=== PATIENT | female | born 1995 | race Caucasian/White ===

== ENCOUNTER 2020-06-08 00:40 | Outpatient (CLI) | payer MEDICAID, SELFPAY ==
--- NOTE | 2020-06-08 07:30 | DI.US_ITS ---
EXAM: US HERNIA CLINICAL HISTORY: 2cm firm mass at r lateral c/s incision,r19.03 TECHNIQUE: Ultrasound performed using standard protocol. COMPARISON: US OB US 2-3 TRIMESTER TRANSABD*P from 06/13/2017 FINDINGS: Soft tissue ultrasound was performed to evaluate and a palpable area abnormality at the patient's C-s ection scar. Ultrasound shows poorly marginated heterogeneously moderately echogenic area with a mas slike appearance, little if any internal vascularity is present, the masslike area measures about 2 c m in diameter. The appearance is nonspecific, the findings may represent focal scar but the possibility of mass such as sarcoma is not excluded on the basis of the ultrasound examination. Please correlate clinically. IMPRESSION: DATA REPOSITORY:
== END 2020-06-08 01:00 ==
PROVIDERS: PCP Nurse Practitioner Family; Visit Provider Obstetrics & Gynecology Gynecology
DX: R19.03 Right lower quadrant abdominal swelling, mass and lump (principal)
CPT/HCPCS: 76857

== ENCOUNTER 2020-09-10 02:05 | Outpatient (CLI) | payer BC, SELFPAY ==
[2020-09-10] MEDS: Breeza Beverage 473 ML BTL PO ×2 (08:31→08:32)
[2020-09-10] MEDS: Omnipaque 350 MG/ML 50 ML BTL PO (08:32)
--- NOTE | 2020-09-10 09:50 | DI.CT_ITS ---
EXAM: CT ABDOMEN PELVIS W CLINICAL HISTORY: PELVIC MASS, R19.00. TECHNIQUE: Imaging Protocol: Axial computed tomography images with coronal and sagittal reformatted images were created and reviewed CONTRAST MATERIAL: Intravenous: Omnipaque 100cc Oral: None COMPARISON: No exams were available for comparison FINDINGS: VISUALIZED LUNG BASES: No nodules nor pleural effusions evident. ABDOMEN: There is no ascites. LIVER: There are no obvious focal hepatic lesions evident . GALLBLADDER/BILIARY: Subtle small 3 millimeter density in the gallbladder fundus is probably a small calculus. In addition, there are foci density in the gallbladder which are also consistent with nonc alcified gallstones. Gallbladder wall is not edematous and there is no pericholecystic fluid. CBD i s not dilated. PANCREAS: No evidence of pancreatic mass nor dilatation of the pancreatic duct. SPLEEN: Spleen is not enlarged. No obvious intrasplenic lesions. Splenic and portal veins are paten t. ADRENALS: There are no significant adrenal masses. KIDNEYS:No cysts evident. No solid renal masses. No calculi nor hydronephrosis.. ABDOMINAL AORTA: Abdominal aorta is not enlarged and there is no apgknixaxlwfqdw-zpsn-flijzo adenopat hy. ABDOMINAL WALL/GI: No evidence of significant anterior abdominal wall hernia. No bowel obstruction. There is a 1.5 x 1.2 by 1.9 cm deep subcutaneous nodule contiguous with the anterior aspect of the ri ght rectus abdominus muscle in the pelvis, this exhibiting density similar to the subjacent musculatu re of the rectus abdominus. There is no associated subcutaneous air or gas nor prominent streaking. PELVIS: GI: No evidence of appendicitis.No evidence of sigmoid diverticulitis. LYMPH NODES: There is no intrapelvic nor inguinal adenopathy. REPRODUCTIVE: Age-appropriate URINARY BLADDER: No calculi nor obvious masses evident OSSEOUS: Bilateral sacroiliitis. No ankylosis of the SI joints IMPRESSION: 1. In the deep anterior right pelvis abdominal wall subcutaneous fat there is a 15 x 12 x 19 millimet er nodular density which is isodense to the adjacent right rectus abdominus muscle. This does not upton ve the appearance of a typical abscess. It is difficult to determine if this or the origin 8 Sitz fr om the deep subcutaneous tissue or from the actual muscle itself. There is no intervening plain evid ent between the rectus abdominus and this nodule. Cannot exclude ominous pathology and if clinically indicated biopsy can be performed. 2. Cholelithiasis. There are multiple gallstones. No evidence of acute cholecystitis nor dilatation of the biliary tree. 3. Bilateral sacroiliitis. There is, however, no ankylosis of the SI joints at this time. 4. There is no ascites. RADIATION DOSE DELIVERED: 1,132.24mGy.cm Total DLP DATA REPOSITORY: All CT scans at this facility are submitted to the National Radiology Data Registry (NRDR) Dose Index Registry (DIR) with the [employer] [place] (ACR). RADIATION OPTIMIZATION: All CT scans at this facility use at least one of these dose optimization te chniques: automated exposure control; mA and/or kV adjustment per patient size (includes targeted exa ms where dose is matched to clinical indication); or iterative reconstruction.
[2020-09-10] MEDS: Normal Saline - Diluent 50 ML VIAL IV (10:12)
[2020-09-10] MEDS: Omnipaque 350 MG/ML 100 ML BTL IJ (10:12)
[2020-09-10] MEDS: Normal Saline Flush 10 ML SYR IVP (10:13)
== END 2020-09-10 02:25 ==
PROVIDERS: PCP Nurse Practitioner Family; Visit Provider Nurse Practitioner Family
DX: R19.09 Other intra-abdominal and pelvic swelling, mass and lump (principal); K80.20 Calculus of gallbladder without cholecystitis without obstruction; M46.1 Sacroiliitis, not elsewhere classified
CPT/HCPCS: 74177; J3490; Q9967

== ENCOUNTER 2022-07-05 03:06 | Outpatient (CLI) | payer OTHER, SELFPAY ==
[2022-07-05 14:38] LABS: Panorama Kit Sent via Fed Ex
[2022-07-05 14:42] LABS: Abs Immature Grans 0.01 10^3/uL (0.0-0.06); Absolute Basophil Count 0.02 10^3/uL (0.0-0.2); Absolute Eosinophil Count 0.07 10^3/uL (0.0-0.7); Absolute Monocyte Count 0.44 10^3/uL (0.1-0.8); Absolute Neutrophil Count 4.62 10^3/uL (1.2-6.7); Basophils % 0.3; HCT 36.4 % (36.0-46.0); HGB 12.5 g/dL (11.2-15.7); Immature Grans % 0.1; Lymphocytes % 23.7; MCHC 34.3 % (32.0-36.0); MCV 93 fL (80-95); MPV 8.9 fL (8.0-11.0); Monocytes % 6.5; Neutrophils % 68.4; Platelet Count 252 10^3/uL (130-400); RBC 3.91 10^6/uL (3.93-5.22); RDW 11.4 % (11.7-14.6); RDW-SD 38.8 fL; WBC 6.76 10^3/uL (4.4-10.8)
[2022-07-05 15:14] LABS: TSH (W/Ref FT4) 1.08 uIU/mL (0.36-3.74)
[2022-07-05 20:36] LABS: Glucose,1 Hr (Glucola) 107 mg/dL (80-140)
[2022-07-06 09:48] LABS: HIV-1/2 Ag & Ab Screen Negative (Negative)
[2022-07-06 10:07] LABS: Hepatitis C Ab w Rflx HCV PCR Negative (Negative)
[2022-07-06 10:41] LABS: Varicella IgG Antibody Positive (See Note)
[2022-07-06 10:45] LABS: Rubella IgG Ab (UVM) Positive (See Note)
[2022-07-06 12:02] LABS: Hepatitis B Surface Ag Negative (Negative)
[2022-07-08 14:38] LABS: Syphilis IgG w/Reflex Nonreactive (Nonreactive)
== END 2022-07-05 03:07 | disposition home or self-care (01) ==
LOC: LBO 03:06
PROVIDERS: PCP Nurse Practitioner Family; Visit Provider Advanced Practice Midwife
DX: Z34.91 Encounter for supervision of normal pregnancy, unspecified, first trimester (principal); Z3A.12 12 weeks gestation of pregnancy
CPT/HCPCS: 36415; 82950; 86787; 86803; 86850; 86900; 86901; 87340; 87389; 84443; 85025; 86762; 86780

== ENCOUNTER 2022-07-05 15:54 | Outpatient (REF) | payer OTHER, SELFPAY ==
--- NOTE | 2022-07-05 14:00 | PAPFT_PTH ---
PATIENT: Eveline Martinez LOC: [facility] U#:[id number] AGE/SX: 26/F ROOM: RE07/05/[address]: Pretty Faustin CNM : 1995 BED: DIS: 07/05/2022 SPEC #: [id number] RECD: 07/05/22 17:43 STATUS: KERWIN REQ #: [id number] RAMILA: 07/05/22 14:[address]: Pretty Faustin DEPT: [facility] Cytology RECD BY: Kareen Rossi ENTERED: 07/05/22 17:44 SP TYPE: PAPFT OTHR DR: Aarti Orta Tissues: 1 - CX/ENDOCX FOR PAP SMEARS Procedures: PAP THIN PREP/UVM Screening Comments: [id number] (CHLAMYDIA/GC)
[2022-07-05 18:29] LABS: *AMPHETAMINES SCREEN URINE Negative (Negative); *BARBITURATES SCREEN URINE Negative (Negative); *BENZODIAZEPINES SCREEN URINE Negative (Negative); Cannabinoids THC Positive (Negative); Cocaine Screen,Urine Negative (Negative); METHADONE URINE SCREEN Negative (Negative); OPIATES URINE SCREEN Negative (Negative)
[2022-07-05 18:30] LABS: Tricyclic Antidepressants Negative (Negative)
[2022-07-07 14:40] LABS: GC Result Negative (Negative)
[2022-07-07 15:27] LABS: Chlamydia Result Positive (Negative)
[2022-07-14 11:09] LABS: Buprenorphine Negative ng/mL (Cutoff: 5.0); Norbuprenorphine Negative ng/mL (Cutoff: 2.5)
[2022-07-15 15:39] LABS: Fentanyl Interpretation Negative.; Fentanyl by LC-MS/MS Not Detected; Norfentanyl by LC-MS/MS Not Detected
== END 2022-07-05 15:55 | disposition home or self-care (01) ==
LOC: LBN 15:54
PROVIDERS: PCP Nurse Practitioner Family; Visit Provider Advanced Practice Midwife
DX: O26.891 Other specified pregnancy related conditions, first trimester (principal); N89.8 Other specified noninflammatory disorders of vagina; O99.321 Drug use complicating pregnancy, first trimester; F12.90 Cannabis use, unspecified, uncomplicated; Z12.4 Encounter for screening for malignant neoplasm of cervix; Z3A.12 12 weeks gestation of pregnancy; Z11.3 Encounter for screening for infections with a predominantly sexual mode of transmission
CPT/HCPCS: 80307; 80348; 87491; 87591; 88142; 80354; 87086; 87480; 87510; 87660

== ENCOUNTER 2022-08-04 02:17 | Outpatient (CLI) | payer OTHER, SELFPAY ==
[2022-08-04 13:30] LABS: Abs Immature Grans 0.02 10^3/uL (0.0-0.06); Absolute Basophil Count 0.01 10^3/uL (0.0-0.2); Absolute Eosinophil Count 0.01 10^3/uL (0.0-0.7); Absolute Lymphocyte Count 0.83 10^3/uL (1.2-3.4); Absolute Monocyte Count 0.55 10^3/uL (0.1-0.8); Absolute Neutrophil Count 6.06 10^3/uL (1.2-6.7); Basophils % 0.1; Eosinophils % 0.1; HCT 36.3 % (36.0-46.0); HGB 12.7 g/dL (11.2-15.7); Immature Grans % 0.3; Lymphocytes % 11.1; MCH 32.5 pg (27.0-33.0); MCV 93 fL (80-95); MPV 9.2 fL (8.0-11.0); Monocytes % 7.4; Platelet Count 217 10^3/uL (130-400); RBC 3.91 10^6/uL (3.93-5.22); RDW 11.9 % (11.7-14.6); RDW-SD 40.3 fL; WBC 7.48 10^3/uL (4.4-10.8)
[2022-08-04 14:22] LABS: ALT 37 U/L (14-59); AST 20 U/L (15-37); Albumin 3.5 g/dL (3.4-5.0); Alkaline Phosphatase 46 U/L (46-116); Anion Gap 7.3 mmol/L (3-11); BUN 7 mg/dL (7-18); Bilirubin, Total 0.2 mg/dL (0.2-1.0); CO2 26.7 mmol/L (21.0-32.0); CREATININE 0.6 mg/dL (0.55-1.02); Calcium 8.6 mg/dL (8.5-10.1); Chloride 102 mmol/L (98-107); Estimated GFR 127.67 (mL/min/1.73m2); Glucose 104 mg/dL (74-106); Potassium 3.3 mmol/L (3.5-5.1); Sodium 136 mmol/L (136-145); Total Protein 7.2 g/dL (6.4-8.2)
== END 2022-08-04 02:18 | disposition home or self-care (01) ==
LOC: LBO 02:17
PROVIDERS: PCP Nurse Practitioner Family; Visit Provider Obstetrics & Gynecology
DX: O16.2 Unspecified maternal hypertension, second trimester (principal)
CPT/HCPCS: 36415; 80053; 85025

== ENCOUNTER 2022-08-04 10:26 | Outpatient (REF) | payer OTHER, SELFPAY ==
[2022-08-04 11:15] LABS: Creatinine,Urine 96.86 mg/dL; PROTEIN 13.8 mg/dL (0.0-11.9)
[2022-08-04 11:40] LABS: Creatinine,24hr Ur 1.94 g/24hr (0.60-1.80); Total Volume 2000 ml
== END 2022-08-04 10:27 | disposition home or self-care (01) ==
LOC: LBN 10:26
PROVIDERS: PCP Nurse Practitioner Family; Visit Provider Obstetrics & Gynecology
DX: O16.2 Unspecified maternal hypertension, second trimester (principal)
CPT/HCPCS: 81050; 82570; 84155

== ENCOUNTER 2022-08-06 22:03 | Emergency (ER) | payer OTHER, SELFPAY ==
[2022-08-06 22:06] VITALS: BP 145/76; PULSE 112; RESP 20; TEMP 36.7; O2SAT 100
[2022-08-06 22:11] VITALS: RESP 17
--- NOTE | 2022-08-06 22:19 | ED.GENADUL_ITS ---
Discharge Plan Disposition Patient Disposition: Home Condition: Good Discharge Details Chief Complaint: GenMedical Clinical Impression: Dehydration, Acute hypokalemia, URI (upper respiratory infection) Primary Care Provider: Aarti Orta ED Provider: José Luis Calloway Home Meds and New Rx's Prescriptions: No Action acetylcysteine [NAC] 600 mg capsule 600 mg PO DAILY Saccharomyces boulardii [Digest Probiotic (S.boulardii)] 250 mg capsule 5,000 mmu cells PO DAILY Prenatabs Rx 29 mg iron- 1 mg tablet 1 tab PO DAILY Qty: 90 3RF fluconazole [Diflucan] 150 mg tablet 150 mg PO ONCE Qty: 1 0RF Rx Instructions: as a single dose fluticasone propionate 16 GM spray,suspension 50 mcg NS DAILY ibuprofen 600 MG tablet 600 mg PO Q6H PRN PRN (Reason: Abdominal Pain) Qty: 45 1RF Discharge Instructions Instructions: Dehydration (ED), Hypokalemia (ED) Additional Instructions: Please eat foods that are high in potassium like legumes, avocados and bananas. Please drink plenty of fluids at home to stay well-hydrated. Follow-up closely with your obstetrics seat cover cutter. If you notice any worsening of your symptoms, or any new symptoms such as vomiting, diarrhea, fever, chills, shortness of breath, chest pain, numbness, weakness, or fainting , please return immediately to the emergency department for reevaluation. Please follow up with your primary care provider as soon as possible for reassessment and reevaluation. As always, it was a pleasure participating in your medical care today. Referrals: Aarti Orta [Primary Care Provider] - Ladan Khoury DO [OSTEOPATHIC DOCTOR] - Medical Decision Making 26-year-old female with a past medical history of tonsillectomy, who is a currently 17 weeks presents today for evaluation of of mild pelvic cramping. Patient has had a normal obstetrics course of. 2 to 3 days ago she did notice a sore scratchy throat, and has had decreased p.o. intake because of this. No vomiting or diarrhea. Tonight she noticed some mild lower pelvic cramping. She denies any vaginal discharge or bleeding. No urinary complaints. No diarrhea. No other complaints at this time. No other modifying factors. Exam demonstrates a well-appearing female, appropriately gravid abdomen. Bedside ultrasound demonstrates a heart rate of 185. Suspect mild dehydration being the cause of her symptoms. We will rehydrate, check for strep, monitor closely and reassess. I did discuss with Dr. Laadn Khoury the scenario, and at this stage she does not see an indication for monitoring as long as the symptoms resolve after rehydration. 11:50 PM Patient's laboratory work-up is returned, urinalysis shows no evidence of infection, patient does not demonstrate evidence of mild dehydration which corresponds with her clinical assessment. Potassium slightly low at 3.1. After rehydration the patient's cramping has resolved, she feels much better and would like to go home. Recommend continued increased fluid use at home. Discussed red flags for which to return. Symptoms at this time are inconsistent with miscarriage, UTI, or significant electrolyte abnormality. We did recommend smoking cessation. I have extensively reviewed the treatment plan and discharge instructions with the patient and their family. I have addressed all patient concerns at this time. The patient and family was made aware of what symptoms to monitor for that would warrant a return to the emergency department. Discussed the plan with the patient and family, they demonstrate verbal understanding and agreement with our assessment and plan at this time. The documentation in this chart was dictated using [employer] dictation software. Please excuse any dictation errors. HPI General Date/Time Provider Initiated Documentation: 08/06/22 22:03 . HPI Narrative: 26-year-old female with a past medical history of tonsillectomy, who is a currently 17 weeks presents today for evaluation of of mild pelvic cramping. Patient has had a normal obstetrics course of. 2 to 3 days ago she did notice a sore scratchy throat, and has had decreased p.o. intake because of this. No vomiting or diarrhea. Tonight she noticed some mild lower pelvic cramping. She denies any vaginal discharge or bleeding. No urinary complaints. No diarrhea. No other complaints at this time. No other modifying factors. Related Data Home Medications Medication Instructions Recorded Confirmed fluticasone propionate 50 50 mcg NS DAILY 03/30/17 08/06/22 mcg/actuation nasal spray,suspension ibuprofen 600 mg tablet 600 mg PO Q6H PRN PRN Abdominal 11/03/17 08/06/22 Pain #45 tabs Saccharomyces boulardii 250 mg 5,000 mmu cells PO DAILY 05/19/22 08/06/22 capsule (Digest Probiotic (S.boulardii)) acetylcysteine 600 mg capsule (NAC) 600 mg PO DAILY 05/19/22 08/06/22 vitamin 1 tab PO DAILY #90 tabs 05/19/22 08/06/22 no.76-iron,carbonyl 29 mg iron-folic acid 1 mg tablet (Prenatabs Rx) fluconazole 150 mg tablet 150 mg PO ONCE #1 tab 08/02/22 08/06/22 (Diflucan) Previous Rx's Medication Instructions Recorded ibuprofen 600 mg tablet 600 mg PO Q6H PRN PRN Abdominal 11/03/17 Pain #45 tabs vitamin 1 tab PO DAILY #90 tabs 05/19/22 no.76-iron,carbonyl 29 mg iron-folic acid 1 mg tablet (Prenatabs Rx) fluconazole 150 mg tablet 150 mg PO ONCE #1 tab 08/02/22 (Diflucan) Allergies Allergy/AdvReac Type Severity Reaction Status Date / Time latex Allergy Severe rash and Verified 08/06/22 22:06 swelling General Stated Complaint: GenMedical GAIL: 3 Review of Systems All systems reviewed & are unremarkable except as noted in HPI and below PFSH All Active Problems (Updated 08/06/22 @ 23:50 by José Luis Calloway DO) Dehydration (Acute) Acute hypokalemia (Acute) URI (upper respiratory infection) (Acute) Elevated blood pressure affecting in second trimester, antepartum (Acute) Marijuana abuse (Acute) ADD (attention deficit disorder) (Acute) (Acute) Anxiety and depression (Chronic 08/01/17) Tobacco use (Acute 10/27/17) Currently using Wellbutrin to assist with cutting back. Smokes approximately 4-5 cigarettes per day. Abdominal or pelvic swelling, mass, or lump, right lower quadrant (Acute) 1026 2022 cm avascular fluid collection at the lateral margin of her Pfannenstiel skin incision. Expectant management planned. Medical History Acute non intractable tension-type headache (12/14/17) PP. Pt encouraged to avoid NSAIDs to avoid reflex H/A. Adult BMI 38.0-38.9 kg/sq m (10/09/17) Anxiety and depression Rx with Wellbutrin. BMI 37.0-37.9, adult (12/14/17) BMI 38.0-38.9,adult Delayed menses Obesity affecting , antepartum (08/01/17) Surgical History delivery delivered 11/03/17. Scheduled. Breech presentation. F. wt:3455gm Tonsillectomy and adenoidectomy age 5 yrs Social History Smoking/Tobacco Use Status: Current every day Tobacco Type: cigarettes Smoking risk assessment performed?: Yes Alcohol Intake: former Drug use: Daily Substance use type: does not use and marijuana Counseling given: Yes Counseling provided: provider counseling Adopted: No Foster care: No Household members: significant other and children Number of Children: 1 Communication Needs: None Do you feel safe in your relationship?: Yes Female Reproductive History Menstrual control method: other History History 2 Para 1 Hx # Term Pregnancies 1 Multiple births 0 Hx # Pregnancies 0 Ectopic pregnancies 0 AB induced 0 Hx Number of Living Children 1 AB spontaneous 0 Past Pregnancies Del. Date GA/Weeks # Preg Succ Route Wgt Sex Labor Lgth Anesth esia Location [facility] 11/03/17 39 No Yes 3458.[address] [facility] - Dr. Mccarthy Delivery Date: 11/03/17 Last Updated by: Pretty Faustin declined ECV, sched'ed C/S for breech [place] Exam Narrative Exam Narrative: 1.Const: Well-nourished, Well-developed, appearing stated age 2.Eyes: PERRL, no conjunctival injection, and symmetrical lids. 3.ENT: Atraumatic external nose and ears. Dry MM. Neck: Symmetric, trachea midline, No thyromegaly. Mild erythema in the posterior oropharynx. Small amount of exudate on the left posterior oropharynx. 4.CVS: +S1/S2, No murmurs or gallops. Peripheral pulses 2+ and equal in all extremities. Brisk capillary refill in all extremities. 5.RESP: Unlabored respiratory effort. Clear to auscultation bilaterally. No wheezes rales or rhonchi 6.GI: Soft, Nontender/Nondistended, No hepatosplenomegaly. No guarding or rebound. Appropriately gravid abdomen, no pain at McBurney's point, negative Lao sign. No pelvic tenderness on palpation. 7.MSK: Normocephalic/Atraumatic, Extremities w/o deformity or ttp No cyanosis or clubbing, Normal movement of all extremities 8.Skin: Warm, Dry. No rashes or lesions. 9.Neuro: talent program manager II-XII grossly intact. Sensation grossly intact, no focal neurologic deficits. 10.Psych: (AAO) x3. Appropriate mood and affect Course Vital Signs Vital signs: Vital Signs Temperature 36.7 C 08/06/22 22:06 Pulse 112 H 08/06/22 22:06 Respiratory Rate 20 08/06/22 22:06 Blood Pressure 145/76 H 08/06/22 22:06 Pulse Oximetry 100 08/06/22 22:06 Temperature 36.7 C 08/06/22 22:06 Temperature Source Temporal Artery Scan 08/06/22 22:06 Pulse 112 H 08/06/22 22:06 Respiratory Rate 17 08/06/22 22:11 Respiratory Effort Non-Labored 08/06/22 22:11 Respiratory Depth Normal 08/06/22 22:11 Respiratory Pattern Normal 08/06/22 22:11 Blood Pressure 145/76 H 08/06/22 22:06 Blood Pressure Position Sitting 08/06/22 22:06 Pulse Oximetry 100 08/06/22 22:06 Oxygen Delivery Method Room Air 08/06/22 22:06 Oxygen Flow Rate 0 08/06/22 22:06 Pain Level 7 08/06/22 22:06
[2022-08-06] MEDS: Normal Saline 1,000 ML 1000 ML IV (22:22)
[2022-08-06 22:24] LABS: Abs Immature Grans 0.01 10^3/uL (0.0-0.06); Absolute Basophil Count 0.01 10^3/uL (0.0-0.2); Absolute Lymphocyte Count 0.91 10^3/uL (1.2-3.4); Absolute Monocyte Count 0.46 10^3/uL (0.1-0.8); Absolute Neutrophil Count 5.41 10^3/uL (1.2-6.7); Basophils % 0.1; HCT 37.4 % (36.0-46.0); Immature Grans % 0.1; Lymphocytes % 13.4; MCH 32.2 pg (27.0-33.0); MCHC 34.8 % (32.0-36.0); MCV 93 fL (80-95); Monocytes % 6.8; Neutrophils % 79.6; Platelet Count 186 10^3/uL (130-400); RBC 4.04 10^6/uL (3.93-5.22); RDW 11.5 % (11.7-14.6); RDW-SD 39.1 fL
[2022-08-06 22:39] LABS: ALT 32 U/L (14-59); AST 22 U/L (15-37); Albumin 3.6 g/dL (3.4-5.0); Alkaline Phosphatase 58 U/L (46-116); Anion Gap 10.3 mmol/L (3-11); BUN 7 mg/dL (7-18); Bilirubin, Total 0.4 mg/dL (0.2-1.0); CO2 24.7 mmol/L (21.0-32.0); CREATININE 0.6 mg/dL (0.55-1.02); Calcium 8.7 mg/dL (8.5-10.1); Chloride 98 mmol/L (98-107); Estimated GFR 127.67 (mL/min/1.73m2); Glucose 109 mg/dL (74-106); Lipase 31 U/L (73-393); Potassium 3.1 mmol/L (3.5-5.1); Sodium 133 mmol/L (136-145); Total Protein 7.8 g/dL (6.4-8.2)
[2022-08-06] MEDS: Potassium Chloride 20 MEQ TABCR 40 MEQ PO (22:48)
[2022-08-06 23:35] LABS: Bilirubin Small (Negative); Blood Trace-intact (Negative); Clarity Sl Cloudy (Clear); Glucose Negative (Negative); Ketones 40 mg/dL (Negative); Leukocyte Esterase Negative (Negative); Nitrite Negative (Negative); Specific Gravity >= 1.030 (1.005-1.025)
[2022-08-06 23:37] LABS: Bacteria Few HPF (Negative); C & S Indicated? No; Casts Negative LPF (Negative); Crystals Negative HPF (Negative); Epithelial Cells Moderate HPF (Negative); Mucus Trace (Negative); WBC Negative HPF (0-5)
[2022-08-06 23:51] VITALS: BP 124/59; PULSE 85; RESP 20; TEMP 37; O2SAT 99
== END 2022-08-07 00:12 | disposition home or self-care (01) ==
PROVIDERS: Emergency Provider Student in an Organized Health Care Education/Training Program; PCP Nurse Practitioner Family
DX: O99.512 Diseases of the respiratory system complicating pregnancy, second trimester (principal); J06.9 Acute upper respiratory infection, unspecified; O99.282 Endocrine, nutritional and metabolic diseases complicating pregnancy, second trimester; E86.0 Dehydration; E87.6 Hypokalemia; Z3A.17 17 weeks gestation of pregnancy
CPT/HCPCS: 36415; 80053; 83690; 87880; 96360; 99284; 81003; 81015; 85025; 87081

== ENCOUNTER 2022-08-08 12:20 | Emergency (ER) | payer OTHER, SELFPAY ==
[2022-08-08 12:39] VITALS: BP 132/82; PULSE 108; RESP 16; TEMP 36.9; O2SAT 99
[2022-08-08] MEDS: Acetaminophen 325 MG TAB 650 MG PO (13:46)
--- NOTE | 2022-08-08 14:10 | ED.GENADUL_ITS ---
Discharge Plan Disposition Patient Disposition: Home Condition: Stable Discharge Details Clinical Impression: Pharyngitis Primary Care Provider: Aarti Orta ED Provider: Dawood Ruggiero Home Meds and New Rx's Prescriptions: Continued Saccharomyces boulardii [Digest Probiotic (S.boulardii)] 250 mg capsule 5,000 mmu cells PO DAILY Prenatabs Rx 29 mg iron- 1 mg tablet 1 tab PO DAILY Qty: 90 3RF Discontinued acetylcysteine [NAC] 600 mg capsule 600 mg PO DAILY fluticasone propionate 16 GM spray,suspension 50 mcg NS DAILY No Action nystatin 100,000 unit/mL suspension 100,000 unit buccal DAILY Qty: 200 0RF Rx Instructions: administer 1/2 of dose in each side of the mouth valacyclovir [Valtrex] 1 gram tablet 1,000 mg PO DAILY Qty: 5 3RF Discharge Instructions Additional Instructions: Please take acetaminophen (tylenol) - 650mg every 6 hours by mouth as needed for pain. Use salt water gargles at least 3 times a day for the next week. Rapid strep testing was negative today. Throat culture is pending at time of discharge. If this culture comes back positive, you will be contacted to initiate antibiotics. COVID testing is pending at time of discharge today. Please maintain home isolation until COVID test is resulted and normal. Please contact your primary care physician to arrange follow-up. Return to the ER immediately for any worsening or new concerning symptoms. Referrals: [facility] [place] [Provider Group] Discharge Data Discharge Date/Time-TO BE ENTERED AT DEPARTURE: 08/08/22 14:26 Medical Decision Making 1943 --46-year-old female at 17 weeks here with pharyngitis. Patient hav ing pain with swallowing solids. She is tolerating oral fluids. No signs of peritonsillar abscess. Rapid strep test was performed and negative. I will send throat culture. Therapeutic options were discussed with the patient and plan will be to continue Tylenol and salt water gargles. HPI General Mode of arrival: ambulatory . Date/Time Provider Initiated Documentation: 08/08/22 13:08 . Limitations to Documentation: no limitations . Information obtained by: patient . HPI Narrative: 26-year-old female at 17 weeks presents with chief complaint of sore throat. Sore throat is been present for the past few days. Patient was seen here on 1224 for sore throat and had negative strep test. Pain is persisted. She notes difficulty swallowing solids. She is able to tolerate p.o. fluids. Patient did have fever last night. Related Data Home Medications Medication Instructions Recorded Confirmed Saccharomyces boulardii 250 mg 5,000 mmu cells PO DAILY 05/19/22 08/08/22 capsule (Digest Probiotic (S.boulardii)) vitamin 1 tab PO DAILY #90 tabs 05/19/22 08/08/22 no.76-iron,carbonyl 29 mg iron-folic acid 1 mg tablet (Prenatabs Rx) nystatin 100,000 unit/mL oral 100,000 unit buccal DAILY #200 mL 08/09/22 08/09/22 suspension valacyclovir 1 gram tablet 1,000 mg PO DAILY #5 tabs 08/09/22 08/09/22 (Valtrex) Previous Rx's Medication Instructions Recorded vitamin 1 tab PO DAILY #90 tabs 05/19/22 no.76-iron,carbonyl 29 mg iron-folic acid 1 mg tablet (Prenatabs Rx) nystatin 100,000 unit/mL oral 100,000 unit buccal DAILY #200 mL 08/09/22 suspension valacyclovir 1 gram tablet 1,000 mg PO DAILY #5 tabs 08/09/22 (Valtrex) Allergies Allergy/AdvReac Type Severity Reaction Status Date / Time latex Allergy Severe rash and Verified 08/09/22 15:26 swelling General Stated Complaint: Sorethroat GAIL: 4 Review of Systems All systems reviewed & are unremarkable except as noted in HPI and below Constitutional Constitutional: Reports fever(s) ENT Ears, Nose, Mouth, and Throat: Reports odynophagia and Reports sore throat Gastrointestinal Gastrointestinal: Reports odynophagia Genitourinary Comments: She denies pelvic pain or abnormal vaginal discharge PFSH All Active Problems Vulvar lesion (Acute) Dehydration (Acute) Acute hypokalemia (Acute) URI (upper respiratory infection) (Acute) Pharyngitis (Acute) Elevated blood pressure affecting in second trimester, antepartum (Acute) Marijuana abuse (Acute) ADD (attention deficit disorder) (Acute) (Acute) Anxiety and depression (Chronic 08/01/17) Tobacco use (Acute 10/27/17) Currently using Wellbutrin to assist with cutting back. Smokes approximately 4-5 cigarettes per day. Abdominal or pelvic swelling, mass, or lump, right lower quadrant (Acute) 1026 2022 cm avascular fluid collection at the lateral margin of her Pfannenstiel skin incision. Expectant management planned. Medical History Acute non intractable tension-type headache (12/14/17) PP. Pt encouraged to avoid NSAIDs to avoid reflex H/A. Adult BMI 38.0-38.9 kg/sq m (10/09/17) Anxiety and depression Rx with Wellbutrin. BMI 37.0-37.9, adult (12/14/17) BMI 38.0-38.9,adult Delayed menses Obesity affecting , antepartum (08/01/17) Surgical History delivery delivered 11/03/17. Scheduled. Breech presentation. F. wt:3455gm Tonsillectomy and adenoidectomy age 5 yrs Social History Smoking/Tobacco Use Status: Current every day Tobacco Type: cigarettes Smoking risk assessment performed?: Yes Alcohol Intake: former Substance use type: does not use Counseling given: Yes Counseling provided: provider counseling Adopted: No Foster care: No Household members: significant other and children Number of Children: 1 Communication Needs: None Do you feel safe at home: Yes Do you feel safe in your relationship?: Yes Female Reproductive History Menstrual control method: other History History 2 Para 1 Hx # Term Pregnancies 1 Multiple births 0 Hx # Pregnancies 0 Ectopic pregnancies 0 AB induced 0 Hx Number of Living Children 1 AB spontaneous 0 Past Pregnancies Del. Date GA/Weeks # Preg Succ Route Wgt Sex Labor Lgth Anesth esia Location Prov Complic 11/03/17 39 No Yes 3458.642 g Female N [facility] - Dr. Mccarthy Delivery Date: 11/03/17 Last Updated by: Pretty Faustin declined ECV, sched'ed C/S for breech [place] Exam Const General: cooperative and no acute distress HENMT Mouth: moist mucous membranes Throat: uvula midline and posterior oropharynx abnormal edema, erythema and exudates Eyes Conjunctivae: normal conjunctivae Sclera: normal sclerae Neck Neck: trachea midline and supple Resp Auscultation: clear to auscultation bilaterally, no rales, no rhonchi and no wheezes Cardio Rate: regular rate and not tachycardic Rhythm: regular rhythm Skin General skin exam: no rashes or lesions noted Course Vital Signs Vital signs: Vital Signs Temperature 36.9 C 08/08/22 12:39 Pulse 108 H 08/08/22 12:39 Respiratory Rate 16 08/08/22 12:39 Blood Pressure 132/82 08/08/22 12:39 Pulse Oximetry 99 08/08/22 12:39 Temperature 36.9 C 08/08/22 12:39 Temperature Source Skin 08/08/22 12:39 Pulse 108 H 08/08/22 12:39 Respiratory Rate 16 08/08/22 12:39 Respiratory Effort 08/08/22 12:43 Blood Pressure 132/82 08/08/22 12:39 Blood Pressure Position Sitting 08/08/22 12:39 Pulse Oximetry 99 08/08/22 12:39 Oxygen Delivery Method Room Air 08/08/22 12:39 Oxygen Flow Rate 0 08/08/22 12:39 Pain Level 6 08/08/22 12:39 Lab/Test Results Lab/Test Results: 08/08/22 13:24 Pharynx Group A Streptococcus Culture - Pending POC Strep Test-NEHEMIAS(Rapid) Start: 08/08/22 13:22 Freq: .Rapid Strep Test Status: Active Protocol: Document 08/08/22 13:31 CAB (Rec: 08/08/22 13:31 CAB [id number]) Strep test-NEHEMIAS(Rapid)-POC POC-Strep test-NEHEMIAS (Rapid) Negative POC-Strep test-NEHEMIAS (Rapid) Negative
== END 2022-08-08 14:26 | disposition home or self-care (01) ==
PROVIDERS: Emergency Provider Student in an Organized Health Care Education/Training Program; PCP Nurse Practitioner Family
DX: J02.9 Acute pharyngitis, unspecified (principal); Z20.822 Contact with and (suspected) exposure to COVID-19
CPT/HCPCS: 87880; 99282; 87081

== ENCOUNTER 2022-08-09 17:39 | Outpatient (CLI) | payer OTHER, SELFPAY ==
[2022-08-12 10:49] LABS: HSV Type 1 Ab, IgG Negative (Negative); HSV Type 2 Ab, IgG Negative (Negative)
== END 2022-08-09 17:40 | disposition home or self-care (01) ==
LOC: LBO 17:49
PROVIDERS: PCP Nurse Practitioner Family; Visit Provider Obstetrics & Gynecology
DX: N90.89 Other specified noninflammatory disorders of vulva and perineum (principal)
CPT/HCPCS: 36415; 86695; 86696

== ENCOUNTER 2022-09-28 15:11 | Outpatient (REF) | payer OTHER, SELFPAY ==
[2022-09-29 14:57] LABS: Chlamydia Result Negative (Negative); GC Result Negative (Negative)
== END 2022-09-28 15:12 | disposition home or self-care (01) ==
LOC: LBN 15:11
PROVIDERS: PCP Nurse Practitioner Family; Visit Provider Obstetrics & Gynecology
DX: Z34.92 Encounter for supervision of normal pregnancy, unspecified, second trimester (principal); Z11.3 Encounter for screening for infections with a predominantly sexual mode of transmission; Z3A.24 24 weeks gestation of pregnancy
CPT/HCPCS: 87491; 87591

== ENCOUNTER 2022-10-20 03:07 | Outpatient (CLI) | payer OTHER, SELFPAY ==
[2022-10-20 15:21] LABS: Abs Immature Grans 0.01 10^3/uL (0.0-0.06); HCT 32.6 % (36.0-46.0); HGB 11.7 g/dL (11.2-15.7); MCH 33.1 pg (27.0-33.0); MCHC 35.9 % (32.0-36.0); MCV 92 fL (80-95); Platelet Count 174 10^3/uL (130-400); RBC 3.53 10^6/uL (3.93-5.22); RDW 12.8 % (11.7-14.6); RDW-SD 41.7 fL; WBC 6.76 10^3/uL (4.4-10.8)
[2022-10-20 15:31] LABS: Glucose,1 Hr (Glucola) 121 mg/dL (80-140)
[2022-10-20 15:37] LABS: Absolute Lymphocyte Count 1.89 10^3/uL (1.2-3.4); Absolute Monocyte Count 0.68 10^3/uL (0.1-0.8); Absolute Neutrophil Count 4.19 10^3/uL (1.2-6.7); Atypical Lymphocytes % 5; Diff Comment Manual Differential; RBC Morphology Normal
== END 2022-10-20 03:08 | disposition home or self-care (01) ==
LOC: LBO 03:07
PROVIDERS: Obstetrics & Gynecology; PCP Nurse Practitioner Family; Visit Provider Obstetrics & Gynecology Gynecology
DX: Z34.92 Encounter for supervision of normal pregnancy, unspecified, second trimester (principal); Z3A.27 27 weeks gestation of pregnancy
CPT/HCPCS: 36415; 82950; 85025

== ENCOUNTER 2022-11-07 15:51 | Outpatient (REF) | payer OTHER, SELFPAY ==
[2022-11-07 20:02] LABS: *AMPHETAMINES SCREEN URINE Negative (Negative); *BARBITURATES SCREEN URINE Negative (Negative); *BENZODIAZEPINES SCREEN URINE Negative (Negative); Cannabinoids THC Positive (Negative); Cocaine Screen,Urine Negative (Negative); METHADONE URINE SCREEN Negative (Negative); OPIATES URINE SCREEN Negative (Negative)
[2022-11-07 20:07] LABS: Tricyclic Antidepressants Negative (Negative)
[2022-11-15 19:19] LABS: Buprenorphine Negative ng/mL (Cutoff: 5.0); Norbuprenorphine Negative ng/mL (Cutoff: 2.5)
== END 2022-11-07 15:52 | disposition home or self-care (01) ==
LOC: LBN 15:51
PROVIDERS: PCP Nurse Practitioner Family; Visit Provider Obstetrics & Gynecology
DX: Z34.93 Encounter for supervision of normal pregnancy, unspecified, third trimester (principal); Z3A.30 30 weeks gestation of pregnancy
CPT/HCPCS: 80307; 80348

== ENCOUNTER 2022-12-06 16:21 | Outpatient (REF) | payer OTHER, SELFPAY ==
[2022-12-06 17:34] LABS: PROTEIN 120.4 mg/dL
[2022-12-06 17:49] LABS: COMMENT (LAB VIEW ONLY) 551.81 mg/dL; Prot/Crea Ur Ratio 0.21
== END 2022-12-06 16:22 | disposition home or self-care (01) ==
LOC: LBN 16:21
PROVIDERS: PCP Nurse Practitioner Family; Visit Provider Obstetrics & Gynecology
DX: Z34.93 Encounter for supervision of normal pregnancy, unspecified, third trimester (principal); Z3A.34 34 weeks gestation of pregnancy
CPT/HCPCS: 82565; 84156

== ENCOUNTER 2022-12-06 16:33 | Outpatient (CLI) | payer OTHER, SELFPAY ==
[2022-12-06 16:47] VITALS: BP 128/72; PULSE 110
[2022-12-06 17:08] VITALS: BP 128/72; PULSE 110; TEMP 36.9
[2022-12-06 17:10] LABS: HCT 32.8 % (36.0-46.0); HGB 11.4 g/dL (11.2-15.7); MCH 31.8 pg (27.0-33.0); MCHC 34.8 % (32.0-36.0); MCV 92 fL (80-95); Platelet Count 194 10^3/uL (130-400); RBC 3.58 10^6/uL (3.93-5.22); RDW 12.6 % (11.7-14.6); RDW-SD 42.3 fL; WBC 6.59 10^3/uL (4.4-10.8)
[2022-12-06 17:41] VITALS: PULSE 88; PULSE 90; O2SAT 100
[2022-12-06 17:42] VITALS: PULSE 86
[2022-12-06 18:28] LABS: ALT 45 U/L (14-59); AST 26 U/L (15-37); Albumin 2.9 g/dL (3.4-5.0); Alkaline Phosphatase 84 U/L (46-116); Anion Gap 7.1 mmol/L (3-11); BUN 9 mg/dL (7-18); Bilirubin, Total 0.5 mg/dL (0.2-1.0); CO2 25.9 mmol/L (21.0-32.0); CREATININE 0.7 mg/dL (0.55-1.02); Calcium 8.5 mg/dL (8.5-10.1); Chloride 103 mmol/L (98-107); Estimated GFR 122.25 (mL/min/1.73m2); Glucose 115 mg/dL (74-106); Sodium 136 mmol/L (136-145); Total Protein 6.5 g/dL (6.4-8.2); Uric Acid 4.5 mg/dL (2.6-6.0)
[2022-12-06 18:30] LABS: Potassium 2.7 mmol/L (3.5-5.1)
--- NOTE | 2022-12-06 19:25 | W.OBNST ---
Date of service: 12/06/22 Time of Service: 19:25 NST Evaluation Reason for NST Reasons for Nonstress Test: OTHER, SEE COMMENT Reason for NST Other: maternal tachycardia Gestational Age Gestational Age in Weeks and Days: 34 Weeks and 4Days Test and Monitor Explained Test/Monitor Explained: Test Explained, Monitor Explained and Patient Verbalized Understanding Vital Signs Blood Pressure: 128/72 Pulse: 110 Temperature: 98.4 F NST Information Date on Monitor: 12/06/22 Time on Monitor: 16:26 Date off Monitor: 12/06/22 Time off Monitor: 17:40 Total Time on Monitor: 74 NST Interventions: PO Hydration Contraction Frequency: irritalbility NST Evaluation Patient States Movement: Present FHR Baseline: 140 Variability: Moderate 6-25 bpm Accelerations: 15x15 Decelerations: None NST Results: Reactive Note Ultrasound Done: N/A. NST Note Note: 12/04/22. Seen at [facility] ED with RUQ pain. Nl CMP, CBC. Nl VS. Pt given Famotidine, Morphine, Carafate and Ondansetron with sx relief. She has a RUQ u/s ordered for 12/12/22 @ [facility] Pt presented to [facility] for previously scheduled visit. P 120 DBP 80s. Pt observed, given PO hydration and pulse and BP normalized. uP/C ratio 0.2, CBC unchanged from 12/04/22. K: 2.7. was reported after pt left. No report of N/V. I called her to advise to increase dietary K and f/u in [facility] 12/09/22. NST Reviewed and Verified by: Jacquelyn Mccarthy
[2022-12-06 19:28] VITALS: BP 128/72; PULSE 110; TEMP 36.9
== END 2022-12-06 18:33 | disposition home or self-care (01) ==
LOC: BCD 16:39 → OBS 16:41
PROVIDERS: PCP Nurse Practitioner Family; Visit Provider Obstetrics & Gynecology Gynecology
DX: O36.8390 Maternal care for abnormalities of the fetal heart rate or rhythm, unspecified trimester, not applicable or unspecified (principal); Z3A.34 34 weeks gestation of pregnancy
CPT/HCPCS: 36415; 80053; 85027; 59025; 84550

== ENCOUNTER 2022-12-15 15:56 | Outpatient (REF) | payer OTHER, SELFPAY ==
[2022-12-15 19:14] LABS: *AMPHETAMINES SCREEN URINE Negative (Negative); *BARBITURATES SCREEN URINE Negative (Negative); *BENZODIAZEPINES SCREEN URINE Negative (Negative); Cannabinoids THC Positive (Negative); Cocaine Screen,Urine Negative (Negative); METHADONE URINE SCREEN Negative (Negative); OPIATES URINE SCREEN Negative (Negative)
[2022-12-15 19:29] LABS: Tricyclic Antidepressants Negative (Negative)
[2022-12-22 16:07] LABS: Buprenorphine Negative ng/mL (Cutoff: 5.0); Norbuprenorphine Negative ng/mL (Cutoff: 2.5)
== END 2022-12-15 15:57 | disposition home or self-care (01) ==
LOC: LBN 15:56
PROVIDERS: PCP Nurse Practitioner Family; Visit Provider Obstetrics & Gynecology
DX: Z34.93 Encounter for supervision of normal pregnancy, unspecified, third trimester (principal)
CPT/HCPCS: 80307; 80348; 87081

== ENCOUNTER 2023-01-10 04:00 | Outpatient (CLI) | payer OTHER, SELFPAY ==
[2023-01-10 11:39] LABS: ALT 21 U/L (14-59); AST 17 U/L (15-37); Albumin 2.7 g/dL (3.4-5.0); Alkaline Phosphatase 124 U/L (46-116); Anion Gap 9.3 mmol/L (3-11); BUN 17 mg/dL (7-18); Bilirubin, Total 0.3 mg/dL (0.2-1.0); CO2 23.7 mmol/L (21.0-32.0); CREATININE 0.9 mg/dL (0.55-1.02); Calcium 8.2 mg/dL (8.5-10.1); Chloride 108 mmol/L (98-107); Estimated GFR 90.42 (mL/min/1.73m2); Glucose 85 mg/dL (74-106); Potassium 3.6 mmol/L (3.5-5.1); Sodium 141 mmol/L (136-145); Total Protein 6.8 g/dL (6.4-8.2)
== END 2023-01-10 04:01 | disposition home or self-care (01) ==
LOC: LBO 04:00
PROVIDERS: Obstetrics & Gynecology Gynecology; PCP Nurse Practitioner Family; Visit Provider Obstetrics & Gynecology
DX: O34.219 Maternal care for unspecified type scar from previous cesarean delivery (principal); Z3A.39 39 weeks gestation of pregnancy; Z01.818 Encounter for other preprocedural examination; Z01.812 Encounter for preprocedural laboratory examination
CPT/HCPCS: 36415; 80053

== ENCOUNTER 2023-01-10 11:40 | Outpatient (REF) | payer OTHER, SELFPAY ==
[2023-01-10 11:58] LABS: Source Nasal/Nares
[2023-01-10 13:07] LABS: COVID-19 PCR Negative (Negative)
== END 2023-01-10 11:41 | disposition home or self-care (01) ==
LOC: LBN 11:40
PROVIDERS: PCP Nurse Practitioner Family; Visit Provider Obstetrics & Gynecology
DX: Z20.822 Contact with and (suspected) exposure to COVID-19 (principal); Z01.818 Encounter for other preprocedural examination; O34.219 Maternal care for unspecified type scar from previous cesarean delivery; Z3A.39 39 weeks gestation of pregnancy
CPT/HCPCS: 87635

== ENCOUNTER 2023-01-11 03:27 | Inpatient (IN) | payer OTHER, SELFPAY ==
[2023-01-11] VITALS (15 sets, daily range): BP systolic 108–130; BP diastolic 67–85; PULSE 62–99; RESP 18–20; TEMP 36.4–37.1; O2SAT 100; BMI 34.4
[2023-01-11] MEDS: AZITHROMYCIN 500 MG in Normal Saline 250 ML 250 MG IVPB (06:25)
[2023-01-11] MEDS: Sodium Citrate 30 ML CUP PO (06:26)
[2023-01-11] MEDS: Lactated Ringers 1,000 ML 200 ML IV ×2 (06:30→08:09)
[2023-01-11 06:46] LABS: Abs Immature Grans 0.02 10^3/uL (0.0-0.06); Absolute Basophil Count 0.02 10^3/uL (0.0-0.2); Absolute Eosinophil Count 0.04 10^3/uL (0.0-0.7); Absolute Lymphocyte Count 2.63 10^3/uL (1.2-3.4); Absolute Monocyte Count 0.52 10^3/uL (0.1-0.8); Absolute Neutrophil Count 4.02 10^3/uL (1.2-6.7); Basophils % 0.3; Eosinophils % 0.6; HCT 33.7 % (36.0-46.0); HGB 11.4 g/dL (11.2-15.7); Immature Grans % 0.3; Lymphocytes % 36.3; MCH 31.2 pg (27.0-33.0); MCHC 33.8 % (32.0-36.0); MCV 92 fL (80-95); MPV 9.8 fL (8.0-11.0); Monocytes % 7.2; Neutrophils % 55.3; Platelet Count 242 10^3/uL (130-400); RBC 3.65 10^6/uL (3.93-5.22); RDW-SD 41.1 fL; WBC 7.25 10^3/uL (4.4-10.8)
--- NOTE | 2023-01-11 07:27 | ANES.PREOP_ITS ---
General Info Date of Service Date Performed: 01/11/23 Height: 5 ft 10 in Weight: 109.032 kg Body Mass Index (BMI): 34.4 Surgical Procedure: Operation Date: 01/11/23 07:40 Proposed Procedure Side Surgeon p Repeat Lower Transverse Section Jolie Allen MD Meds Allergies and Home Medications Allergies Allergy/AdvReac Type Severity Reaction Status Date / Time latex Allergy Severe rash and Verified 01/10/23 10:18 swelling Home Medication Medication Instructions Recorded Saccharomyces boulardii 250 mg 5,000 mmu cells PO DAILY 05/19/22 capsule (Digest Probiotic (S.boulardii)) vitamin 1 tab PO DAILY #90 tabs 05/19/22 no.76-iron,carbonyl 29 mg iron-folic acid 1 mg tablet (Prenatabs Rx) esomeprazole magnesium 40 mg 40 mg PO DAILY #30 caps 12/09/22 capsule,delayed release (Nexium) potassium chloride 10 mEq 10 meq PO BID #30 caps 12/09/22 capsule,extended release fluticasone propionate 50 1 spray intranasal Q12H #16 grams 12/13/22 mcg/actuation nasal spray,suspension (Flonase Allergy Relief) Current Visit Medications: Current Medications Generic Name Dose Route Start Last Admin Trade Name Freq PRN Reason Stop Dose Admin Citric Acid/Sodium Citrate 30 ml 01/11/23 04:00 01/11/23 06:26 Sodium Citrate 30 Ml Cup PO 30 ml PREOP DAVIS Administration Ringer's Solution 1,000 mls @ 200 mls/hr 01/11/23 03:30 IV INFUSION DAVIS Sodium Chloride 500 mls @ 0 mls/hr 01/11/23 03:26 Saline 500ml Bag IV PRN PRN As Directed Cefazolin Sodium/Dextrose 2 gm in 50 mls @ 100 mls/hr 01/11/23 03:30 Ancef Duplex IVPB PREOP DAVIS Azithromycin 500 mg/ Sodium 250 mls @ 250 mls/hr 01/11/23 03:30 01/11/23 06:25 Chloride IVPB 250 mls/hr PREOP DAVIS Administration IV Miscellaneous Supplies 1 each 01/11/23 03:30 Iv Access IV DIRECTED DAVIS Sodium Chloride 0 ml 01/11/23 03:26 Normal Saline Flush 10 Ml Syr IVP PRN PRN PFSH Active Problems Active Problems: Problem Status Onset Code Nasal congestion R09.81 Hypokalemia E87.6 GERD (gastroesophageal reflux disease) K21.9 Tobacco use 10/27/17 Z72.0 Z34.90 Marijuana abuse F12.10 Elevated blood pressure affecting in second trimester, antepartum O16.2 Medical History Medical History (Updated 12/13/22 @ 10:58 by Jacuqelyn Mccarthy MD) Abdominal or pelvic swelling, mass, or lump, right lower quadrant Endometriosis -removed at [facility] December 2021 ADD (attention deficit disorder) Anxiety and depression Rx with Wellbutrin. Surgical History Surgical History delivery delivered 11/03/17. Scheduled. Breech presentation. F. wt:3455gm Tonsillectomy and adenoidectomy age 5 yrs Tobacco Smoking/Tobacco Use Status: Current every day Tobacco Type: cigarettes Alcohol Alcohol Intake: former Substance Use Substance use type: marijuana Counseling provided: provider counseling Details: Positive UDS 12/15/22 Prental History History 2 Para 1 Hx # Term Pregnancies 1 Multiple births 0 Hx # Pregnancies 0 Ectopic pregnancies 0 AB induced 0 Hx Number of Living Children 1 AB spontaneous 0 Past Pregnancies Del. Date GA/Weeks # Preg Succ Route Wgt Sex Labor Lgth Anesth esia Location Prov [facility] 11/03/17 39 No Yes 3458.642 g Female N [facility] - Dr. Mccarthy Delivery Date: 11/03/17 Last Updated by: Jolie Allen MD declined ECV, sched'ed C/S for breech Harriet Had R side CS scar endometriosis removed at [facility] December 2021 Vital Signs and Lab Results Vital Signs Most Recent Vital Signs in EMR: Most Recent Vital Signs Temp Pulse Resp BP 36.9 C 99 H 20 125/77 01/11/23 06:12 01/11/23 06:12 01/11/23 06:12 01/11/23 06:12 Vital Signs Comment Vital Signs Comment:: SpO2 99% Lab Results 01/11/23 06:05 Blood Type / Crossmatch: No Data to Display Complete Blood Count: White Blood Count 7.25 10^3/uL (4.4-10.8) 01/11/23 06:05 Red Blood Count 3.65 10^6/uL (3.93-5.22) L 01/11/23 06:05 Hemoglobin 11.4 g/dL (11.2-15.7) 01/11/23 06:05 Hematocrit 33.7 % (36.0-46.0) L 01/11/23 06:05 Platelet Count 242 10^3/uL (130-400) 01/11/23 06:05 Complete Metabolic Panel: Sodium 141 mmol/L (136-145) 01/10/23 10:04 Potassium 3.6 mmol/L (3.5-5.1) 01/10/23 10:04 Chloride 108 mmol/L (98-107) H 01/10/23 10:04 Carbon Dioxide 23.7 mmol/L (21.0-32.0) 01/10/23 10:04 BUN 17 mg/dL (7-18) 01/10/23 10:04 Creatinine 0.9 mg/dL (0.55-1.02) 01/10/23 10:04 Est GFR (CKD-EPI 2020) 90.42 (mL/min/1.73m2) 01/10/23 10:04 Calcium 8.2 mg/dL (8.5-10.1) L 01/10/23 10:04 Albumin 2.7 g/dL (3.4-5.0) L 01/10/23 10:04 Glucose 85 mg/dL (74-106) 01/10/23 10:04 Liver Function Panel: Alanine Aminotransferase (ALT/SGPT) 21 U/L (14-59) 01/10/23 10: 04 Aspartate Amino Transf (AST/SGOT) 17 U/L (15-37) 01/10/23 10:04 Coagulation Panel: No Data to Display Cardiac Panel: No Data to Display Arterial Blood Gas: No Data to Display Venous Blood Gas: No Data to Display Pancreas Panel: No Data to Display Thyroid Panel: No Data to Display Infectious Disease: Coronavirus (COVID-19)(PCR) Negative (Negative) 01/10/23 09:30 Coronavirus 2019 Source Nasal/Nares 01/10/23 09:30 Blood Cultures: No Data to Display Toxicology Panel: Urine Amphetamines Screen Negative (Negative) 12/15/22 15:45 Urine Benzodiazepines Screen Negative (Negative) 12/15/22 15:4 5 Urine Barbiturates Screen Negative (Negative) 12/15/22 15:45 Urine Cocaine Screen Negative (Negative) 12/15/22 15:45 Urine Methadone Screen Negative (Negative) 12/15/22 15:45 Urine Opiates Screen Negative (Negative) 12/15/22 15:45 Ur Tricyclic Antidepressants Screen Negative (Negative) 15:45 Ur Tetrahydrocannabinol (THC) Scrn Positive (Negative) A 12/15 15:45 Panel: No Data to Display Imaging and Studies Imaging and Studies Study information below may be from another EMR and interpreted by another provider. Please see original notes in EMR for more complete details. Pulmonary Function Summary: 12/2016: IMPRESSION: Normal pulmonary function trena dy. Anesthesia Assessment and Plan Anesthesia History Personal History: No History of Anesthesia Complications Family History: No Family History of Anesthesia Complications Exercise Tolerance Exercise Tolerance: Metabolic Equivalents>4 Pertinent Negatives Pertinent Negatives: No Symptoms of GERD, No Major Cardiovascular Symptoms or Complaints and No Major Pulmonary Symptoms or Complaints Cardiac & Pulmonary Exam Cardiac Exam: Normal S1/S2 Heart Sounds Pulmonary Exam: Clear Bilateral Breath Sounds Implantable Cardiac Device Does patient have a Pacemaker or an ICD?: No Airway Exam Known Difficult Airway: No Mallampati Class: 3 Mouth Opening: Normal (> 3cm) Thyromental Distance: Greater than 3 cm Neck Range of Motion: Full ROM Neck Circumference: Normal Teeth Condition: Normal Dentition ASA Classification ASA Score: ASA 2 Emergency Case?: No NPO Status NPO Status: NPO Clears >2 hours, Solids >8 hours Status Status: Confirmed Anesthesia Plan Resuscitation Status: Full Code Anesthesia Technique: Spinal Anesthesia Airway Planned: Natural Airway Pain Management: Intrathecal Analgesia Monitors Used: Standard Monitors
[2023-01-11] MEDS: ceFAZolin 2 GM/50 ML BAG IVPB (07:36)
[2023-01-11] MEDS: Bupivacaine 0.25% Pres-Free 30 ML VIAL (08:27)
--- NOTE | 2023-01-11 09:28 | PDOC.OPNB_ITS ---
Date of service: 01/11/23 Time of Service: 08:00 Operative Note Operative Note Delivery Method: Scheduled and Repeat Previous LT Incision: Yes DATE OF PROCEDURE: 01/11/23 PRE-OP DIAGNOSES: Prior C section, declines trial of labor POST-OP DIAGNOSES: same PROCEDURE: PLTCS SURGEON: Jolie Allen Assisting Surgeon: Ladan Khoury Anesthesia: spinal Estimated blood loss (mL): 600 Complications: None Patient was transported to: floor Patient's condition: stable Indications: Prior CS for breech. Desires RCS. Findings: moderate adhesions in subcuticular layer, some adhesion of the omentum to the anterior abdominal wall but no need to release it. Procedure Description: After informed consent was signed the patient was taken to the operating room. She was given spinal anesthesia, SCDs were placed on her legs and a dacosta catheter was introduced into her bladder. The heart rate was checked and was normal. She underwent abdominal prep and was draped in the dorsal supine position with a leftward tilt. The patient was tested and spinal anesthesia was found to be adequate. A time out was performed. A skin incision was made with the scalpel and carried down to the underlying layer of fascia with blunt dissection. The fascia was incised on either side of the midline and the fascial incision extended laterally with a combination of sharp and blunt dissection. The inferior edge of the fascia was grasped with terri clamps and tented up and dissected down with a combination of sharp and blunt dissection. Then the superior edge of the fascial incision was grasped with terri clamps and tented up and dissected down with a combination of sharp and blunt dissection. The rectus muscles were in the midline and the peritoneum was entered bluntly. Adhesion of the omentum to the anterior abdominal wall noted at the upper edge of the incision but not impeding access. The peritoneal incision was extended laterally with blunt dissection. The bladder blade was inserted. A transverse incision was made in the lower uterine segment with the scalpel. The incision was extended superiorly and inferiorly with blunt pressure. The infants head delivered with fundal pressure followed by the shoulders and the rest of the body. The cord was milked toward the baby and after 1min it was clamped x2 and cut. The baby was handed to the summer analyst. Cord blood was collected. The placenta delivered with fundal massage and gentle cord traction and appeared to be intact. The uterus was exteriorized and cleared of clots and debris. The uterine incision was closed with 0-vicryl in a running locked fashion with a second layer of suture imbricating the first. Good hemostasis was noted. The uterus was placed back into the abdominal cavity. There was a small amount of bleeding from the right side of the incision that was stopped with a figure of eight suture of 3-0 monocryl. Clots were cleared from the peritoneal cavity with lap sponges. The incision was inspected once again and good hemostasis was noted. There was some bleeding from the left side of rectus muscles which was eventually stopped with cautery and a figure or eight suture of 0-monocryl. The fascia was closed with 0-vicryl in a running unlocked fashion. The skin was injected with bupivocaine along the length of the incision. The subcuticular layer was irrigated and closed with interrupted sutures of 3-0 vicryl. The skin was closed with 4-0 vicryl in a running subcuticular fashion. The incision was cleaned. Mastisol and steristrips were placed. A dressing was placed. The fundus was palpated to be firm. The patient was moved to the stretcher and taken to the recovery room in stable condition. Gestational Age in Weeks/Days: 39 Weeks and 5 Days
--- NOTE | 2023-01-11 13:35 | W.ANESPOSTOP ---
Postoperative Evaluation Date, Time and Location Date Performed: 01/11/23 Time Performed: 13:30 Patient Location: Obstetrics Vital Signs Most Recent Imported Vital Signs: Most Recent Vital Signs Temp Pulse Resp BP Pulse Ox 36.4 C L 68 18 122/84 100 01/11/23 12:30 01/11/23 12:30 01/11/23 12:30 01/11/23 12:30 01/11/23 12:30 Assessment Mental Status: Awake (Alert & Oriented to Patient Baseline) Airway and Respiratory Function: Patent airway with normal (patient baseline) respiratory exam Cardiovascular Function: Hemodynamically Stable Hydration Status: Adequately Hydrated Nausea & Vomiting: No Nausea or Vomiting Pain: Pt. Denies Any Pain Peripheral Nerve Block: Patient did not receive a nerve block
[2023-01-11] MEDS: Lactated Ringers 1,000 ML 120 ML IV (15:17)
[2023-01-11] MEDS: Ketorolac 30 MG/ML VIAL IVP ×2 (15:17→21:16)
[2023-01-11] MEDS: Normal Saline Flush 10 ML SYR IVP (21:18)
[2023-01-12 02:00] VITALS: BP 126/84; PULSE 72; TEMP 36.4
[2023-01-12] MEDS: Ketorolac 30 MG/ML VIAL IVP ×2 (03:16→09:04)
[2023-01-12] MEDS: Normal Saline Flush 10 ML SYR IVP ×2 (03:16→09:03)
[2023-01-12 05:46] VITALS: BP 115/71; PULSE 75; TEMP 36.6
--- NOTE | 2023-01-12 07:57 | W.PM.OBPNV1 ---
Date of service: 01/12/23 Time of Service: 07:57 Assessment and Plan Assessment and plan (1) Status post repeat low transverse section: Status: Acute Assessment and plan: Postoperative day #1 status post repeat low transverse section. Anticipate routine postop and care. Subjective Subjective Interval history: Patient seen and examined this morning. Doing well. Breast-feeding is somewhat challenging this morning. Sleep pattern has been somewhat poor. She is bonding well with her . All of her questions were answered. [place] baby status: Doing well, Rooming in and Strong Bonding Observed feeding status: Exclusively breast feeding Exam Physical Exam Vital signs: Temp Pulse Resp BP Pulse Ox 97.8 F 75 18 115/71 100 01/12/23 05:46 01/12/23 05:46 01/11/23 16:50 01/12/23 05:46 01/11/23 16:50 Vital Signs Reviewed: Yes Constitutional Constitutional: no acute distress HEENT Exam HEENT Exam: Normal Neck Exam Neck Exam: Normal Respiratory Exam Respiratory Exam: Normal Cardiovascular Exam Cardiovascular Exam: Normal Abdominal Exam Abdomen: Tender Comments: Incision is dressed with Mepilex Fundal Exam Fundus: Below Umbilicus and Firm Extremities Exam Extremity Exam: Normal and Edema (Mild bilateral); negative Calf Tenderness Neurological Exam Neurological Exam: Normal Psychiatric Exam Psychiatric Exam: Normal Results Hemoglobin/Hematocrit: Hgb 11.4 g/dL (11.2-15.7) 01/11/23 06:05 Hct 33.7 % (36.0-46.0) L 01/11/23 06:05 Abnormal Lab Findings: Abnormal Labs 01/11/23 06:05 RBC 3.65 L Hct 33.7 L
[2023-01-12 08:15] VITALS: BP 115/77; PULSE 65; RESP 20; TEMP 36.7; O2SAT 98
[2023-01-12] MEDS: Docusate Sodium 100 MG CAP PO (09:03)
[2023-01-12 12:00] VITALS: BP 118/76; PULSE 81; RESP 16; TEMP 36.6; O2SAT 99
[2023-01-12 19:00] VITALS: BP 113/66; PULSE 68; RESP 16; TEMP 36.7
[2023-01-12] MEDS: Ibuprofen 600 MG TAB PO (21:50)
[2023-01-12] MEDS: Acetaminophen 325 MG TAB 650 MG PO (21:50)
[2023-01-13 02:11] VITALS: PULSE 68; RESP 16; TEMP 36.8
--- NOTE | 2023-01-13 07:16 | DSE_ITS ---
Date of service: 01/13/23 Time of Service: 07:16 DS: Diagnosis Discharge Diagnosis (1) Status post repeat low transverse section: Status: Acute Discharge Plan Disposition Patient Disposition: Home Condition: Good Discharge Details Reason For Visit: Delivery Admit Date/Time: 01/11/23 03:27 Admit Provider: Jolie Allen Attending Provider: Jolie Allen Primary Care Provider: Aarti Orta Hospital Course Hospital Course: Patient was admitted the morning of surgery and underwent an uncomplicated repeat low transverse delivery of a viable female who will be named Storm. Patient was discharged home on postop day 2 successfully breast- feeding. Her pain was controlled with ibuprofen. She will be given a prescription for use at home and will follow-up in the office in approximately 2 weeks for initial visit. Home Meds and New Rx's Prescriptions: No Action Saccharomyces boulardii [Digest Probiotic (S.boulardii)] 250 mg capsule 5,000 mmu cells PO DAILY Prenatabs Rx 29 mg iron- 1 mg tablet 1 tab PO DAILY Qty: 90 3RF esomeprazole magnesium [Nexium] 40 mg capsule,delayed release(DR/EC) 40 mg PO DAILY Qty: 30 4RF potassium chloride 10 mEq capsule, extended release 10 meq PO BID Qty: 30 4RF fluticasone propionate [Flonase Allergy Relief] 50 mcg/actuation spray,suspension 1 spray intranasal Q12H Qty: 16 3RF Rx Instructions: administer into each nostril Discharge Instructions Stand Alone Forms: BC Instructions, BC Discharge Instruc Activity:: No driving for 2 weeks Equipment/Supplies:: No Equipment Needed Diet:: As Tolerated OB:DS Summary Summary Delivery Method: Repeat complications OB DS: none Contraception Discussed Contraception Discussed: Yes (Declined LARC.) Contraceptive Plan: Foam/Condoms, Infant Gender-Baby A: Female weight: 7 lb 10.753 oz Disposition of Baby A: Home Status at Discharge Functional status at discharge: independent ambulation Overall status at discharge: patient is progressing back to baseline Mental Status: mental status grossly normal Speech and Movement: speech and movement normal Mood: congruent mood Affect: normal affect Exam Physical Exam Vital signs: Temp Pulse Resp BP Pulse Ox 98.2 F 68 16 113/66 99 01/13/23 02:11 01/13/23 02:11 01/13/23 02:11 01/12/23 19:00 01/12/23 12:00 Constitutional Constitutional: no acute distress HEENT Exam HEENT Exam: Normal (Patient's nasal congestion has improved in the last 24 hours) Neck Exam Neck Exam: Normal Respiratory Exam Respiratory Exam: Normal Cardiovascular Exam Cardiovascular Exam: Normal Abdominal Exam Abdomen: Tender Comments: Sterile dressing removed. Incision clean dry intact Steri-Strips in place Fundal Exam Fundus: Below Umbilicus and Firm Rectal Exam Rectal Exam: Not Done Extremities Exam Extremity Exam: Normal Back/Spine/Pelvis Exam Back Exam: Normal Skin Exam Skin Exam: Normal (Multiple tattoos) Neurological Exam Neurological Exam: Normal Psychiatric Exam Psychiatric Exam: Normal [facility] All Active Problems (Updated 12/13/22 @ 10:58 by Jacquelyn Mccarthy MD) Status post repeat low transverse section (Acute) Nasal congestion (Acute) Hypokalemia (Acute) GERD (gastroesophageal reflux disease) (Chronic) Tobacco use (Acute 10/27/17) Currently using Wellbutrin to assist with cutting back. Smokes approximately 4-5 cigarettes per day. (Acute) Marijuana abuse (Acute) Elevated blood pressure affecting in second trimester, antepartum (Acute) Medical History (Updated 12/13/22 @ 10:58 by Jacquelyn Mccarthy MD) Abdominal or pelvic swelling, mass, or lump, right lower quadrant Endometriosis -removed at [facility] December 2021 ADD (attention deficit disorder) Anxiety and depression Rx with Wellbutrin. Surgical History (Updated 01/12/23 @ 07:59 by Ladan Khoury DO) delivery delivered 11/03/17. Scheduled. Breech presentation. F. wt:3455gm Tonsillectomy and adenoidectomy age 5 yrs Social History (Updated 01/13/23 @ 07:18 by Jacquelyn Mccarthy MD) Smoking/Tobacco Use Status: Current every day Tobacco Type: cigarettes Smoking risk assessment performed?: Yes Alcohol Intake: former Substance use type: marijuana Counseling given: Yes Counseling provided: provider counseling Details: Positive UDS 12/15/22 Adopted: No Foster care: No Household members: significant other, children and other Details: Deni Hdez D-Hayden. Number of Children: 2 Communication Needs: None Do you feel safe at home: Yes Do you feel safe in your relationship?: Yes Female Reproductive History Menstrual control method: other History History 2 Para 1 Hx # Term Pregnancies 1 Multiple births 0 Hx # Pregnancies 0 Ectopic pregnancies 0 AB induced 0 Hx Number of Living Children 1 AB spontaneous 0 Past Pregnancies Del. Date GA/Weeks # Preg Succ Route Wgt Sex Labor Lgth Anesth esia Location Prov Complic 11/03/17 39 No Yes 7 lb 10 oz Female N [facility] - Dr. Mccarthy 01/11/23 39 No Yes 7 lb 10 oz Female [facility] Delivery Date: 11/03/17 Last Updated by: Jolie Allen MD declined ECV, sched'ed C/S for breech Harriet Had R side CS scar endometriosis removed at [facility] December 2021 Delivery Date: 01/11/23 Last Updated by: Jacquelyn Mccarthy MD Elective repeat. Storm. . DS: Data Vitals/I&O Vitals and I&O: Vital Signs Temperature 98.2 F 01/13/23 02:11 Temperature Source Axillary 01/13/23 02:11 Pulse 68 01/13/23 02:11 Pulse Rhythm Regular 01/12/23 19:00 Respiratory Rate 16 01/13/23 02:11 Respiratory Depth Normal 01/12/23 19:00 Blood Pressure 113/66 01/12/23 19:00 Blood Pressure Mean 81 01/12/23 19:00 Pulse Oximetry 99 01/12/23 12:00 Oxygen Delivery Method Room Air 01/11/23 06:12 Oxygen Flow Rate 0 01/11/23 06:12 Pain Level 2 01/12/23 22:50 Comment Pt sleeping 01/12/23 23:00
[2023-01-13] MEDS: Acetaminophen 325 MG TAB 650 MG PO (08:03)
[2023-01-13] MEDS: Docusate Sodium 100 MG CAP PO (08:03)
[2023-01-13] MEDS: Ibuprofen 600 MG TAB PO (08:03)
[2023-01-13 08:18] VITALS: BP 125/73; PULSE 80; RESP 18; TEMP 36.6; O2SAT 100
[2023-01-13] MEDS: Esomeprazole 20 MG CAPCR 40 MG PO (08:30)
[2023-01-13] MEDS: Fluticasone NASAL SPRAY 16 GM BTL NS (08:30)
[2023-01-13] MEDS: Prenatal Multivitamin w/CA,FE TAB 1 TAB PO (08:34)
[2023-01-13 11:24] VITALS: BP 119/76; PULSE 80; RESP 20; TEMP 36.5; O2SAT 100
== END 2023-01-13 13:15 | disposition home or self-care (01) | DRG 787 ==
PROVIDERS: Admitting Provider Obstetrics & Gynecology; PCP Nurse Practitioner Family; Visit Provider Obstetrics & Gynecology
PROC: 10D00Z1 Extraction of Products of Conception, Low, Open Approach (ICD-10-PCS; CPT 59514; principal; 2023-01-11 07:30)
DX: O34.211 Maternal care for low transverse scar from previous cesarean delivery (principal); O99.324 Drug use complicating childbirth; Z37.0 Single live birth; Z3A.39 39 weeks gestation of pregnancy; O99.62 Diseases of the digestive system complicating childbirth; O99.334 Smoking (tobacco) complicating childbirth; F17.210 Nicotine dependence, cigarettes, uncomplicated; F12.90 Cannabis use, unspecified, uncomplicated; O99.344 Other mental disorders complicating childbirth; F41.8 Other specified anxiety disorders; K21.9 Gastro-esophageal reflux disease without esophagitis
CPT/HCPCS: 59514; 36415; 86850; 86900; 86901; 85025; J0131; J0456; J0690; J1100; J1885; J2370; J2405; J3010

== ENCOUNTER 2024-05-27 16:42 | Outpatient (REF) | payer OTHER, SELFPAY ==
--- NOTE | 2024-05-27 13:45 | PAPFT_PTH ---
PATIENT: Eveline Martinez LOC: [facility] U#:[id number] AGE/SX: 28/F ROOM: RE05/27/[address]: Aarti Orta : 1995 BED: DIS: 05/27/2024 SPEC #: [id number] RECD: 05/28/24 18:16 STATUS: KERWIN REQ #: [id number] RAMILA: 05/27/24 13:[address]: Aarti Orta DEPT: [facility] Cytology RECD BY: Kareen Rossi Tissues: 1 - CX/ENDOCX FOR PAP SMEARS Procedures: PAP THIN PREP/UVM Screening HPV DNA PROBE Comments: [id number] (HPV 16 & 18/45) (CHLAMYDIA/GC)
[2024-05-27 21:37] LABS: FREE T4 1.01 ng/dL (0.76-1.46); TSH 1.08 uIU/mL (0.36-3.74)
[2024-05-27 21:49] LABS: Calculated LDL 88 mg/dL (<100); Cholesterol 148 mg/dL (<200); HDL Cholesterol 47 mg/dL (40-60); Triglyceride 65 mg/dL (<150)
[2024-05-28 19:11] LABS: HIV-1/2 Ag & Ab Screen Negative (Negative)
[2024-05-28 19:17] LABS: Hepatitis C Ab w Rflx HCV PCR Negative (Negative)
[2024-05-29 11:36] LABS: Syphilis Serology (RPR) Negative (Negative)
[2024-05-29 11:53] LABS: Chlamydia Result Positive (Negative); GC Result Negative (Negative)
== END 2024-05-27 16:43 | disposition home or self-care (01) ==
LOC: NCHCN 16:42
PROVIDERS: PCP Nurse Practitioner Family; Visit Provider Nurse Practitioner Family
DX: Z12.4 Encounter for screening for malignant neoplasm of cervix (principal); E66.9 Obesity, unspecified; Z11.3 Encounter for screening for infections with a predominantly sexual mode of transmission
CPT/HCPCS: 80061; 86803; 87389; 87491; 87591; 88142; 84439; 84443; 86592; 87624

== ENCOUNTER 2024-10-01 15:21 | Outpatient (REF) | payer OTHER, SELFPAY ==
[2024-10-01 15:44] LABS: Bilirubin Negative (Negative); Blood Negative (Negative); Clarity Clear (Clear); Glucose Negative (Negative); Ketones Negative (Negative); Leukocyte Esterase Negative (Negative); Nitrite Negative (Negative); Urobilinogen 0.2 mg/dL (Up to 0.2); pH 8.5 (5-8)
[2024-10-01 15:59] LABS: Bacteria Rare HPF (Negative); C & S Indicated? No/Sq. Contamination; Casts Negative LPF (Negative); Crystals Negative HPF (Negative); Epithelial Cells Many HPF (Negative); Mucus Moderate (Negative); RBC 0-2 HPF (0-2)
== END 2024-10-01 15:22 | disposition home or self-care (01) ==
LOC: NCHCN 15:21
PROVIDERS: PCP Nurse Practitioner Family; Visit Provider Nurse Practitioner Family
DX: R35.0 Frequency of micturition (principal)
CPT/HCPCS: 81003; 81015

== ENCOUNTER 2025-02-12 19:27 | Outpatient (REF) | payer OTHER, SELFPAY ==
[2025-02-12 18:29] LABS: Cannabinoids THC Positive (Negative); METHADONE URINE SCREEN Negative (Negative)
[2025-02-16 11:02] LABS: Fentanyl Scr w/Rfx Confirm Negative ng/mL (<1)
== END 2025-02-12 19:28 | disposition home or self-care (01) ==
LOC: LBN 19:27
PROVIDERS: PCP Nurse Practitioner Family; Visit Provider Advanced Practice Midwife
DX: O30.001 Twin pregnancy, unspecified number of placenta and unspecified number of amniotic sacs, first trimester (principal)
CPT/HCPCS: 80307; 80348; 87086

== ENCOUNTER 2025-03-11 04:45 | Outpatient (CLI) | payer OTHER, SELFPAY ==
[2025-03-11 14:45] LABS: Abs Immature Grans 0.02 10^3/uL (0.0-0.06); HCT 35.0 % (36.0-46.0); HGB 12.3 g/dL (11.2-15.7); Immature Grans % 0.3 %; MCH 31.9 pg (27.0-33.0); MCHC 35.1 % (32.0-36.0); MCV 91 fL (80-95); MPV 8.6 fL (8.0-11.0); Platelet Count 225 10^3/uL (130-400); RBC 3.86 10^6/uL (3.93-5.22); RDW 12.0 % (11.7-14.6); RDW-SD 39.8 fL; WBC 7.44 10^3/uL (4.4-10.8)
[2025-03-11 23:10] LABS: HIV-1/2 Ag & Ab Screen Negative (Negative)
[2025-03-12 10:27] LABS: Hepatitis C Ab w Rflx HCV PCR Negative (Negative)
[2025-03-12 10:40] LABS: Rubella IgG Ab (UVM) Positive (See Note)
== END 2025-03-11 04:46 | disposition home or self-care (01) ==
LOC: LBO 04:45
PROVIDERS: Advanced Practice Midwife; PCP Nurse Practitioner Family; Visit Provider Obstetrics & Gynecology
DX: Z34.91 Encounter for supervision of normal pregnancy, unspecified, first trimester (principal); O30.001 Twin pregnancy, unspecified number of placenta and unspecified number of amniotic sacs, first trimester
CPT/HCPCS: 36415; 86787; 86803; 86850; 86900; 86901; 87340; 87389; 85025; 86762; 86780

== ENCOUNTER 2025-05-07 01:06 | Outpatient (CLI) | payer OTHER, SELFPAY ==
[2025-05-07 15:00] LABS: Abs Immature Grans 0.02 10^3/uL (0.0-0.06); HCT 33.6 % (36.0-46.0); HGB 11.8 g/dL (11.2-15.7); Immature Grans % 0.3 %; MCH 32.8 pg (27.0-33.0); MCHC 35.1 % (32.0-36.0); MCV 93 fL (80-95); MPV 9.0 fL (8.0-11.0); Platelet Count 207 10^3/uL (130-400); RBC 3.60 10^6/uL (3.93-5.22); RDW 11.9 % (11.7-14.6); RDW-SD 41.2 fL; WBC 7.98 10^3/uL (4.4-10.8)
[2025-05-07 15:40] LABS: Glucose,1 Hr (Glucola) 98 mg/dL (80-140)
[2025-05-11 12:45] LABS: Syphilis IgG w/Reflex Nonreactive (Nonreactive)
== END 2025-05-07 01:07 | disposition home or self-care (01) ==
LOC: LBO 01:06
PROVIDERS: Advanced Practice Midwife; PCP Nurse Practitioner Family; Visit Provider Obstetrics & Gynecology
DX: O30.001 Twin pregnancy, unspecified number of placenta and unspecified number of amniotic sacs, first trimester (principal); O82 Encounter for cesarean delivery without indication; Z34.91 Encounter for supervision of normal pregnancy, unspecified, first trimester
CPT/HCPCS: 36415; 82950; 85025; 86780

== ENCOUNTER 2025-07-18 18:40 | Emergency (ER) | payer OTHER, SELFPAY ==
[2025-07-18 18:45] VITALS: BP 158/102; PULSE 133; RESP 20; TEMP 36.7; O2SAT 98
--- NOTE | 2025-07-18 18:58 | ED.GENADUL_ITS ---
Discharge Plan Disposition Patient Disposition: Admit to [facility] Condition: Stable Discharge Details Clinical Impression: N&V (nausea and vomiting) Primary Care Provider: Aarti Orta ED Provider: Don Gale Home Meds and New Rx's Prescriptions: No Action Saccharomyces boulardii [Digest Probiotic (S.boulardii)] 250 mg capsule 5,000 mmu cells PO DAILY PRN docusate sodium 50 mg tablet 50 mg PO DAILY PRN PRN Gummies (DHA-EPA) 180 mcg-32.5mg- 25 mg-7.5 mg tablet,chewable PO aspirin 81 mg tablet 81 mg PO DAILY esomeprazole magnesium [Nexium] 40 mg capsule,delayed release(DR/EC) 40 mg PO DAILY Qty: 30 4RF HPI General Mode of arrival: ambulatory . Date/Time Provider Initiated Documentation: 07/18/25 18:50 . Limitations to Documentation: no limitations . Information obtained by: patient . History of Present Illness 29 year old F presents to the emergency department with the chief complaint of n/v, described as moderate, Quality is described as aching, Patient started experiencing this hour(s) (10) and it has been constant. No relieving factors improve symptom(s), No exacerbating factors reported . Patient notes no other symptoms.. Patient did receive the following treatments prior to arrival, none Related Data Home Medications ?Medication ?Instructions ?Recorded ?Confirmed ts-gfw-uvaxi 180 mcg-om3 32.5 tab PO 01/14/25 06/30/25 pz-jbb-cef-other gt3d-uchi chew tablet ( Gummies (DHA-EPA)) Saccharomyces boulardii 250 mg 5,000 mmu cells PO DION Y PRN 02/12/25 07/18/25 capsule (Digest Probiotic (S.boulardii)) aspirin 81 mg tablet 81 mg PO DAILY 02/12/2501/05 docusate sodium 50 mg tablet 50 mg PO DAILY PRN PRN 07/18/25 esomeprazole magnesium 40 mg 40 mg PO DAILY #30 caps 1 07/18/25 capsule,delayed release (Nexium) Previous Rx's ?Medication ?Instructions ?Recorded esomeprazole magnesium 40 mg 40 mg PO DAILY #30 caps 1 capsule,delayed release (Nexium) Allergies Allergy/AdvReac Type Severity Reaction Status Date / Time latex Allergy Severe rash and Verified 07/18/25 18:47 swelling General Stated Complaint: Abd Prob GAIL: 3 Review of Systems All systems reviewed & are unremarkable except as noted in HPI and below Constitutional Constitutional: Denies chills, Denies fever(s) and Denies weakness Cardiovascular Cardiovascular: Denies chest pain and Denies dyspnea Respiratory Respiratory: Denies cough and Denies dyspnea Gastrointestinal Gastrointestinal: Denies abdominal pain, Reports nausea and Reports vomiting Neurologic Neurologic: Denies weakness Exam Const General: no acute distress Orientation: alert HENMT Head: normal to inspection Ears: external ears normal General nose exam: external nose normal Mouth: moist mucous membranes Eyes General: appearance normal, both eyes and all related structures Neck Neck: normal visual inspection Resp Effort & Inspection: normal respiratory effort and able to speak in complete sentences Cardio Rate: regular rate Skin General skin exam: no rashes or lesions noted Neuro General: patient alert and patient oriented x3 Extrem General: normal to inspection Psych Mental Status: mental status grossly normal Course Vital Signs Vital signs: Vital Signs Temperature 36.7 C 07/18/25 18:45 Pulse 133 H 07/18/25 18:45 Respiratory Rate 20 07/18/25 18:45 Blood Pressure 158/102 H 07/18/25 18:45 Pulse Oximetry 98 07/18/25 18:45 Temperature 36.7 C 07/18/25 18:45 Pulse 133 H 07/18/25 18:45 Respiratory Rate 20 07/18/25 18:45 Blood Pressure 158/102 H 07/18/25 18:45 Blood Pressure Position Sitting 07/18/25 18:45 Pulse Oximetry 98 07/18/25 18:45 Medical Decision Making 29-year-old female currently 34 weeks with twins, comes in with nausea vomiting throughout the day today. She says that this is the first time this has happened during her . She denies any severe abdominal pain with when she is vomiting she has a little lower abdominal discomfort. No fevers or chills. No vaginal bleeding. She is stable on arrival, has no abdominal tenderness. Given her complaintsconcern for dehydration and given her BP conc esteban for possible preeclampsia, I will treat her with IV fluids as she does appear mildly dehydrated, and also a dose of Zofran and check a CBC and CMP and consult with SEATING AND MOBILITY TECHNOLOGIST. discused with Dr. Khoury from obgyn who will admit the patient to labor and delivery for further management Differential Diagnosis Differential Diagnosis: Viral illness, vomiting associate with [facility] All Active Problems N&V (nausea and vomiting) (Acute) Discordant growth in twin gestation (Acute) Chronic GERD (Acute) Cholelithiasis (Acute) Twin (Acute) Nasal congestion (Acute) GERD (gastroesophageal reflux disease) (Chronic) Tobacco use (Acute 10/27/17) Had quit but started again in October 2024. Interested in cutting back, maybe quitting. Medical History Vapes nicotine containing substance Marijuana abuse ADD (attention deficit disorder) Abdominal or pelvic swelling, mass, or lump, right lower quadrant Endometriosis -removed at [facility] December 2021 Anxiety and depression Rx with Wellbutrin. Surgical History delivery delivered 11/03/17. Scheduled. Breech presentation. F. wt:3455gm 01/11/23: scheduled RCS Tonsillectomy and adenoidectomy age 5 yrs Family History Mother Fibromyalgia Brain aneurysm age 48 Depression Maternal Grandmother Cancer Social History Smoking/Tobacco Use Status: Current every day Tobacco Type: cigarettes Smoking risk assessment performed?: Yes Alcohol Intake: former Substance use type: marijuana Counseling given: Yes Counseling provided: provider counseling Details: Positive UDS 12/15/22 Adopted: No Foster care: No Household members: significant other, children and other Details: VALERIE-Deni Pineda, Carlos. Number of Children: 2 Communication Needs: None Do you feel safe at home: Yes Do you feel safe in your relationship?: Yes Female Reproductive History Menstrual control method: other History History 3 Para 2 Hx # Term Pregnancies 2 Multiple births 0 Hx # Pregnancies 0 Ectopic pregnancies 0 AB induced 0 Hx Number of Living Children 2 AB spontaneous 0 Past Pregnancies Del. Date GA/Weeks # Preg Succ Route Wgt Sex Labor Lgth Anesth esia Location Prov Complic 11/03/17 39 No Yes 3458.642 g Female N [facility] - Dr. Mccarthy 01/11/23 39 No Yes 3458.642 g Female N [facility] Tiffany Delivery Date: 11/03/17 Last Updated by: Jolie Allen MD declined ECV, sched'ed C/S for breech Harriet Had R side CS scar endometriosis removed at [facility] December 2021 Delivery Date: 01/11/23 Last Updated by: Jacquelyn Mccarthy MD Elective repeat. Storm. .
[2025-07-18] MEDS: Normal Saline 1,000 ML 1000 ML IV (19:29)
[2025-07-18] MEDS: Ondansetron 4 MG/2 ML VIAL IVP (19:40)
[2025-07-18 19:46] LABS: COVID-19 PCR Negative (Negative); RSV PCR Negative (Negative)
[2025-07-18 19:51] LABS: Abs Immature Grans 0.02 10^3/uL (0.0-0.06); HCT 34.5 % (36.0-46.0); HGB 11.8 g/dL (11.2-15.7); Immature Grans % 0.2 %; MCH 31.0 pg (27.0-33.0); MCHC 34.2 % (32.0-36.0); MCV 91 fL (80-95); MPV 9.7 fL (8.0-11.0); Platelet Count 229 10^3/uL (130-400); RBC 3.81 10^6/uL (3.93-5.22); RDW 12.0 % (11.7-14.6); RDW-SD 39.7 fL; WBC 11.54 10^3/uL (4.4-10.8)
[2025-07-18 20:14] LABS: Magnesium 1.5 mg/dL (1.6-2.6)
[2025-07-18 20:16] LABS: ALT 16 U/L (10-49); AST 19 U/L (<34); Albumin 3.9 g/dL (3.2-5.0); Alkaline Phosphatase 132 U/L (46-116); Anion Gap 14.7 mmol/L (3-11); BUN 10 mg/dL (9-23); Bilirubin, Total 0.90 mg/dL (0.2-1.2); CO2 18.3 mmol/L (20.0-31.0); Calcium 8.7 mg/dL (8.3-10.6); Chloride 109 mmol/L (98-107); Glucose 89 mg/dL (74-106); Potassium 3.4 mmol/L (3.5-5.1); Sodium 142 mmol/L (136-145); Total Protein 6.6 g/dL (5.7-8.2)
== END 2025-07-18 19:56 | disposition short-term general hospital (02) ==
LOC: ER 20:46
PROVIDERS: Emergency Provider Emergency Medicine; PCP Nurse Practitioner Family
DX: O21.2 Late vomiting of pregnancy (principal); Z3A.34 34 weeks gestation of pregnancy
CPT/HCPCS: 99285 ×2; 96374; 80053; 87637; 96361; 83735; 85025; J2405

== ENCOUNTER 2025-07-18 20:40 | Outpatient (CLI) | payer OTHER, SELFPAY ==
[2025-07-18 20:51] VITALS: BP 136/73; PULSE 115; RESP 20; TEMP 36.7; O2SAT 97
[2025-07-18 21:21] VITALS: BP 136/73; PULSE 115; TEMP 36.9
[2025-07-18] MEDS: Lactated Ringers 500 ML IV (21:24)
--- NOTE | 2025-07-18 22:12 | W.OBNST ---
Date of service: 07/18/25 Time of Service: 22:12 NST Evaluation Reason for NST Reasons for Nonstress Test: MULTIPLE GESTATION and OTHER, SEE COMMENT Reason for NST Other: Vomiting and elevated BP in ER Gestational Age Gestational Age in Weeks and Days: 34 Weeks and 3Days Test and Monitor Explained Test/Monitor Explained: Test Explained, Monitor Explained and Patient Verbalized Understanding Vital Signs Blood Pressure: 136/73 Pulse: 115 Temperature: 98.4 F Weight: 251 lb Urine Results Urine Protein: Negative Urine Ketones: Negative Urine Glucose: Negative Urine Blood: Negative NST Information Date on Monitor: 07/18/25 Time on Monitor: 20:00 Date off Monitor: 07/18/25 Time off Monitor: 21:10 Total Time on Monitor: 70 NST Interventions: IV Fluids and Notify Provider Contraction Frequency: Q3 NST Evaluation Patient States Movement: Present FHR Baseline: 145 Variability: Moderate 6-25 bpm Accelerations: 15x15 Decelerations: None NST Results: Reactive NST Evaluation Baby B Patient States Movement: Present FHR Baseline: 160 Variability: Moderate 6-25 bpm Accelerations: 15x15 Decelerations: None NST Results: Reactive NST Results Other: MD reviewed strip, FHR baseline decreasing with IV fluids Note Ultrasound Done: N/A. NST Note Note: Patient had been transferred from the emergency department to the floor. She was admitted there for nausea and vomiting and suspected dehydration at 34 weeks and 3 days with twin gestation. On initial presentation, she did have an elevated blood pressure. She had IV instituted and laboratory studies performed in the emergency department. CBC and CMP are normal. Repeat blood pressure was normal at 136/73. She had category 1 heart rate tracing for both A and B baby. She was gonzalo irregularly, however cervical exam was closed, thick, posterior. She was discharged home with close interval follow-up. Her flu, and COVID swabs were all negative. NST Reviewed and Verified by: Ladan Khoury
[2025-07-18 22:13] VITALS: BP 136/73; PULSE 115; TEMP 36.9
== END 2025-07-18 21:27 ==
LOC: BCD 20:41 → OBS 20:42
PROVIDERS: PCP Nurse Practitioner Family; Visit Provider Obstetrics & Gynecology
DX: O99.891 Other specified diseases and conditions complicating pregnancy (principal); R11.2 Nausea with vomiting, unspecified; O30.043 Twin pregnancy, dichorionic/diamniotic, third trimester; Z3A.34 34 weeks gestation of pregnancy
CPT/HCPCS: 96360; 59025

== ENCOUNTER 2025-07-22 07:47 | Outpatient (CLI) | payer OTHER, SELFPAY ==
[2025-07-22 11:34] VITALS: BP 141/82; PULSE 97; TEMP 36.6
[2025-07-22 12:16] VITALS: BP 117/83; PULSE 68
[2025-07-22 12:17] VITALS: BP 194/125; PULSE 69
[2025-07-22 12:20] VITALS: BP 141/82; PULSE 69
--- NOTE | 2025-07-23 12:35 | W.OBNST ---
Date of service: 07/22/25 Time of Service: 11:30 NST Evaluation Reason for NST Reasons for Nonstress Test: MULTIPLE GESTATION Gestational Age Gestational Age in Weeks and Days: 35 Weeks and 0Days Test and Monitor Explained Test/Monitor Explained: Test Explained Vital Signs Blood Pressure: 141/82 Pulse: 97 Temperature: 97.9 F Weight: 256 lb Urine Results Urine Protein: Negative Urine Ketones: Negative Urine Glucose: Negative Urine Blood: Negative NST Information Date on Monitor: 07/22/25 Time on Monitor: 11:00 Date off Monitor: 07/22/25 Time off Monitor: 11:50 Total Time on Monitor: 50 NST Interventions: None Contraction Frequency: none NST Evaluation Patient States Movement: Present FHR Baseline: 115 Variability: Moderate 6-25 bpm Accelerations: 15x15 Decelerations: None NST Results: Reactive NST Results Other: Baby B 145, Moderate , 15 X 15, no D-cels Note Ultrasound Done: N/A. NST Note NST Reviewed and Verified by: Jolie Allen
[2025-07-23 12:36] VITALS: BP 141/82; PULSE 97; TEMP 36.6
== END 2025-07-22 12:17 | disposition home health service (06) ==
LOC: BCD 07:47 → OBS 11:32
PROVIDERS: PCP Nurse Practitioner Family; Visit Provider Obstetrics & Gynecology
DX: Z3A.35 35 weeks gestation of pregnancy (principal); O30.043 Twin pregnancy, dichorionic/diamniotic, third trimester
CPT/HCPCS: 96372; 59025

== ENCOUNTER 2025-07-28 07:27 | Outpatient (CLI) | payer OTHER, SELFPAY ==
[2025-07-28 09:04] VITALS: BP 137/85; PULSE 92; TEMP 36.4
[2025-07-28 10:06] LABS: Glucose Negative (Negative)
[2025-07-28 10:19] LABS: Prot/Crea Ur Ratio 0.40 mg/mg Cr
[2025-07-28 10:21] LABS: C & S Indicated? No; RBC Negative HPF (0-2); WBC 0-2 HPF (0-5)
--- NOTE | 2025-07-28 10:45 | W.OBNST ---
Date of service: 07/28/25 Time of Service: 10:46 NST Evaluation Reason for NST Reasons for Nonstress Test: MULTIPLE GESTATION Gestational Age Gestational Age in Weeks and Days: 35 Weeks and 6Days Test and Monitor Explained Test/Monitor Explained: Test Explained, Monitor Explained and Patient Verbalized Understanding Vital Signs Blood Pressure: 137/85 Pulse: 92 Temperature: 97.6 F Urine Results Urine Protein: Positive Urine Ketones: Negative Urine Glucose: Negative Urine Blood: Negative NST Information Date on Monitor: 07/28/25 Time on Monitor: 08:52 Date off Monitor: 07/28/25 Time off Monitor: 09:23 Total Time on Monitor: 31 NST Interventions: None Contraction Frequency: Occasional mild contraction upon palpation NST Evaluation Patient States Movement: Present FHR Baseline: 130 Variability: Moderate 6-25 bpm Accelerations: 15x15 Decelerations: None NST Results: Reactive NST Evaluation Baby B Patient States Movement: Present FHR Baseline: 140 Variability: Moderate 6-25 bpm Accelerations: 15x15 Decelerations: None NST Results: Reactive Note Ultrasound Done: N/A. NST Note Note: Category 1 reactive NST x 2 NST Reviewed and Verified by: Ladan Khoury
[2025-07-28 10:46] VITALS: BP 137/85; PULSE 92; TEMP 36.4
== END 2025-07-28 09:48 ==
LOC: BCD 07:28 → OBS 09:02
PROVIDERS: PCP Nurse Practitioner Family; Visit Provider Obstetrics & Gynecology
DX: R80.9 Proteinuria, unspecified (principal); Z3A.35 35 weeks gestation of pregnancy; O30.043 Twin pregnancy, dichorionic/diamniotic, third trimester
CPT/HCPCS: 59025; 81003; 81015; 82565; 84156; 87081

== ENCOUNTER 2025-07-31 08:17 | Outpatient (CLI) | payer OTHER, SELFPAY ==
[2025-07-31 06:04] VITALS: BP 121/70; PULSE 82
[2025-07-31 09:15] VITALS: BP 129/78; PULSE 89; TEMP 36.7
[2025-07-31 15:38] LABS: Creatinine,Urine 60.5 mg/dL
[2025-07-31 16:11] LABS: Creatinine,24hr Ur 1.45 g/24hr (0.60-1.80); Total Volume 2400 mL
[2025-07-31 16:48] VITALS: BP 129/78; PULSE 89; TEMP 36.7
--- NOTE | 2025-07-31 16:48 | W.OBNST ---
Date of service: 07/31/25 Time of Service: 09:30 NST Evaluation Reason for NST Reasons for Nonstress Test: OTHER, SEE COMMENT Reason for NST Other: Twins Gestational Age Gestational Age in Weeks and Days: 36 Weeks and 2Days Test and Monitor Explained Test/Monitor Explained: Test Explained and Monitor Explained Vital Signs Blood Pressure: 129/78 Pulse: 89 Temperature: 98.1 F Weight: 270 lb Urine Results Urine Protein: Negative Urine Ketones: Positive Urine Glucose: Negative Urine Blood: Negative NST Information Date on Monitor: 07/31/25 Time on Monitor: 09:02 Date off Monitor: 07/31/25 Time off Monitor: 09:41 Total Time on Monitor: 39 NST Interventions: None NST Evaluation Patient States Movement: Present FHR Baseline: 125 Variability: Moderate 6-25 bpm Accelerations: 15x15 Decelerations: None NST Results: Reactive NST Evaluation Baby B Patient States Movement: Present FHR Baseline: 135 Variability: Moderate 6-25 bpm Accelerations: 15x15 Decelerations: None NST Results: Reactive Note Ultrasound Done: N/A. NST Note NST Reviewed and Verified by: Jolie Allen
== END 2025-07-31 11:00 ==
LOC: BCD 08:25 → OBS 08:57
PROVIDERS: Obstetrics & Gynecology; PCP Nurse Practitioner Family; Visit Provider Obstetrics & Gynecology
DX: Z3A.36 36 weeks gestation of pregnancy (principal); O30.043 Twin pregnancy, dichorionic/diamniotic, third trimester
CPT/HCPCS: 59025; 81050; 82570; 84155

== ENCOUNTER 2025-08-04 07:21 | Outpatient (CLI) | payer OTHER, SELFPAY ==
[2025-08-04 09:17] VITALS: BP 120/76; PULSE 86
[2025-08-04 10:05] LABS: Abs Immature Grans 0.02 10^3/uL (0.0-0.06); HCT 30.0 % (36.0-46.0); HGB 10.0 g/dL (11.2-15.7); Immature Grans % 0.3 %; MCH 30.0 pg (27.0-33.0); MCHC 33.3 % (32.0-36.0); MCV 90 fL (80-95); MPV 9.4 fL (8.0-11.0); Platelet Count 235 10^3/uL (130-400); RBC 3.33 10^6/uL (3.93-5.22); RDW 12.1 % (11.7-14.6); RDW-SD 39.5 fL; WBC 6.55 10^3/uL (4.4-10.8)
[2025-08-04 10:26] LABS: ALT 21 U/L (10-49); AST 18 U/L (<34); Albumin 3.4 g/dL (3.2-5.0); Alkaline Phosphatase 137 U/L (46-116); Anion Gap 8.4 mmol/L (3-11); BUN 9 mg/dL (9-23); Bilirubin, Total 0.3 mg/dL (0.2-1.2); CO2 23.6 mmol/L (20.0-31.0); Calcium 8.2 mg/dL (8.3-10.6); Chloride 110 mmol/L (98-107); Glucose 90 mg/dL (74-106); Potassium 3.6 mmol/L (3.5-5.1); Sodium 142 mmol/L (136-145); Total Protein 6.0 g/dL (5.7-8.2)
[2025-08-04 10:38] VITALS: BP 119/76; PULSE 80
[2025-08-04 11:08] VITALS: BP 119/76; PULSE 80
--- NOTE | 2025-08-04 11:08 | W.OBNST ---
Date of service: 08/04/25 Time of Service: 11:08 NST Evaluation Reason for NST Reasons for Nonstress Test: OTHER, SEE COMMENT Reason for NST Other: twins Gestational Age Gestational Age in Weeks and Days: 36 Weeks and 6Days Test and Monitor Explained Test/Monitor Explained: Test Explained Vital Signs Blood Pressure: 119/76 Pulse: 80 Weight: 295 lb 8 oz NST Information Date on Monitor: 08/04/25 Time on Monitor: 09:05 Date off Monitor: 08/04/25 Time off Monitor: 10:00 Total Time on Monitor: 55 NST Interventions: None NST Evaluation Patient States Movement: Present FHR Baseline: 115 Variability: Moderate 6-25 bpm Accelerations: 15x15 Decelerations: None NST Results: Reactive NST Evaluation Baby B Patient States Movement: Present FHR Baseline: 130 Variability: Moderate 6-25 bpm Accelerations: 15x15 Decelerations: None NST Results: Reactive Note Ultrasound Done: N/A. NST Note Note: Category 1 reactive nonstress test for both A and B baby. No issues or concerns. Patient does have isolated proteinuria. Laboratory studies done today are appropriate. She will be seen back in the office for surveillance again on Monday. All questions answered. She is scheduled for her repeat 08/12/2025 NST Reviewed and Verified by: Ladan Khoury
== END 2025-08-04 10:05 | disposition home health service (06) ==
LOC: BCD 07:28 → OBS 08:51
PROVIDERS: PCP Nurse Practitioner Family; Visit Provider Obstetrics & Gynecology
DX: Z3A.36 36 weeks gestation of pregnancy (principal); O30.043 Twin pregnancy, dichorionic/diamniotic, third trimester
CPT/HCPCS: 36415; 80053; 59025; 85025

== ENCOUNTER 2025-08-08 07:37 | Outpatient (CLI) | payer OTHER, SELFPAY ==
[2025-08-08 11:27] VITALS: BP 134/82; PULSE 98; TEMP 36.8
[2025-08-08 12:53] LABS: Abs Immature Grans 0.02 10^3/uL (0.0-0.06); HCT 29.5 % (36.0-46.0); HGB 9.8 g/dL (11.2-15.7); Immature Grans % 0.3 %; MCH 29.9 pg (27.0-33.0); MCHC 33.2 % (32.0-36.0); MCV 90 fL (80-95); MPV 9.7 fL (8.0-11.0); Platelet Count 240 10^3/uL (130-400); RBC 3.28 10^6/uL (3.93-5.22); RDW 11.9 % (11.7-14.6); RDW-SD 39.2 fL; WBC 7.33 10^3/uL (4.4-10.8)
[2025-08-08 13:13] LABS: Prot/Crea Ur Ratio 0.34 mg/mg Cr
[2025-08-08 13:17] VITALS: BP 130/78; PULSE 81
[2025-08-08 13:36] LABS: ALT 14 U/L (10-49); AST 16 U/L (<34); Albumin 3.6 g/dL (3.2-5.0); Alkaline Phosphatase 144 U/L (46-116); Anion Gap 8.9 mmol/L (3-11); BUN 9 mg/dL (9-23); Bilirubin, Total 0.4 mg/dL (0.2-1.2); CO2 23.1 mmol/L (20.0-31.0); Calcium 8.5 mg/dL (8.3-10.6); Chloride 108 mmol/L (98-107); Glucose 70 mg/dL (74-106); Potassium 3.7 mmol/L (3.5-5.1); Sodium 140 mmol/L (136-145); Total Protein 6.4 g/dL (5.7-8.2)
--- NOTE | 2025-08-08 16:51 | W.OBNST ---
Date of service: 08/08/25 Time of Service: 16:56 NST Evaluation Reason for NST Reasons for Nonstress Test: MULTIPLE GESTATION Gestational Age Gestational Age in Weeks and Days: 37 Weeks and 3Days Test and Monitor Explained Test/Monitor Explained: Test Explained, Monitor Explained and Patient Verbalized Understanding Vital Signs Blood Pressure: 134/82 Pulse: 98 Temperature: 98.2 F Urine Results Urine Protein: Positive Urine Ketones: Negative Urine Glucose: Negative Urine Blood: Negative NST Information Date on Monitor: 08/08/25 Time on Monitor: 11:19 Date off Monitor: 08/08/25 Time off Monitor: 13:17 Total Time on Monitor: 118 NST Interventions: None Contraction Frequency: 2-8 NST Evaluation Patient States Movement: Present FHR Baseline: 115 Variability: Moderate 6-25 bpm Accelerations: 15x15 Decelerations: None NST Results: Reactive NST Evaluation Baby B Patient States Movement: Present FHR Baseline: 135 Variability: Moderate 6-25 bpm Accelerations: 15x15 Decelerations: None NST Results: Reactive Note Ultrasound Done: SLAVA (Both babies are cephalic; MVP baby A 4.69 cm. MVP baby B 7.11 cm. breathing and reassuring activity incidentally noted in both.) Coding for SLAVA w/NST: Completed Exam and Presentation Coding for Presentation w/NST: Completed Exam. NST Note Note: Patient presents today for routine NST at 37 weeks for twin gestation. She reports feeling overall well. Initial assessment of the NSTs was modestly concerning for minimal variability and baby A; though, accelerations were still present. Patient stated that she had not eaten yet, today. She denied any headaches, visual changes, dizziness, nausea/vomiting, abdominal pain. She denies any contractions, leakage, or bleeding. She reports good movement. Lab work is stable and continued monitoring of babies was very reassuring. Ultimately had a reactive and reassuring NST for both babies. A complete transabdominal ultrasound was performed and identified the above reassuring findings. Patient to repeat NST this week and on Monday in an abundance of caution. Labor precautions reviewed; she declines SVE today. Encouraged to have low threshold for seeking immediate reevaluation if any concerns arise. NST Reviewed and Verified by: Venita Montejo
[2025-08-08 16:55] VITALS: BP 134/82; PULSE 98; TEMP 36.8
== END 2025-08-08 13:30 ==
LOC: BCD 07:38 → OBS 11:26
PROVIDERS: PCP Nurse Practitioner Family; Visit Provider Obstetrics & Gynecology
DX: Z3A.37 37 weeks gestation of pregnancy (principal); R80.9 Proteinuria, unspecified; O30.043 Twin pregnancy, dichorionic/diamniotic, third trimester
CPT/HCPCS: 36415; 80053; 59025; 82565; 84156; 85025

== ENCOUNTER 2025-08-10 10:59 | Outpatient (CLI) | payer OTHER, SELFPAY ==
[2025-08-10 11:05] VITALS: PULSE 106
[2025-08-10 11:08] VITALS: BP 124/84; PULSE 98; TEMP 36.6
--- NOTE | 2025-08-10 14:16 | W.OBNST ---
Date of service: 08/10/25 Time of Service: 14:17 NST Evaluation Reason for NST Reasons for Nonstress Test: OTHER, SEE COMMENT Reason for NST Other: twins Gestational Age Gestational Age in Weeks and Days: 37 Weeks and 5Days Test and Monitor Explained Test/Monitor Explained: Test Explained, Monitor Explained and Patient Verbalized Understanding Vital Signs Blood Pressure: 124/84 Pulse: 98 Temperature: 97.9 F NST Information Date on Monitor: 08/10/25 Time on Monitor: 11:01 Date off Monitor: 08/10/25 Time off Monitor: 12:16 Total Time on Monitor: 75 NST Interventions: PO Hydration Contraction Frequency: 7-9, irregular NST Evaluation Patient States Movement: Present FHR Baseline: 130 Variability: Moderate 6-25 bpm Accelerations: 15x15 Decelerations: None NST Results: Reactive NST Evaluation Baby B Patient States Movement: Present FHR Baseline: 140 Variability: Moderate 6-25 bpm Accelerations: 15x15 Decelerations: None NST Results: Reactive Note Ultrasound Done: N/A. NST Note NST Reviewed and Verified by: Venita Montejo
[2025-08-10 14:17] VITALS: BP 124/84; PULSE 98; TEMP 36.6
== END 2025-08-10 12:20 ==
LOC: BCD 11:00 → OBS 11:04
PROVIDERS: PCP Nurse Practitioner Family; Visit Provider Obstetrics & Gynecology
DX: O30.043 Twin pregnancy, dichorionic/diamniotic, third trimester (principal); Z3A.37 37 weeks gestation of pregnancy
CPT/HCPCS: 59025

== ENCOUNTER 2025-08-11 12:15 | Inpatient (IN) | payer OTHER, SELFPAY ==
[2025-08-11] VITALS (111 sets, daily range): BP systolic 106–138; BP diastolic 58–88; PULSE 77–202; RESP 18; TEMP 36.8–36.9; O2SAT 94–100; BMI 38.7
[2025-08-11 13:15] LABS: Abs Immature Grans 0.02 10^3/uL (0.0-0.06); HCT 31.1 % (36.0-46.0); HGB 10.5 g/dL (11.2-15.7); Immature Grans % 0.3 %; MCH 30.1 pg (27.0-33.0); MCHC 33.8 % (32.0-36.0); MCV 89 fL (80-95); MPV 9.4 fL (8.0-11.0); Platelet Count 231 10^3/uL (130-400); RBC 3.49 10^6/uL (3.93-5.22); RDW 12.1 % (11.7-14.6); RDW-SD 38.9 fL; WBC 6.74 10^3/uL (4.4-10.8)
[2025-08-11 13:32] LABS: Fentanyl Scr w/Rflx to Conf, U Negative (Negative)
[2025-08-11] MEDS: Lactated Ringers 1,000 ML 200 ML IV (13:46)
[2025-08-11] MEDS: AZITHROMYCIN 500 MG in Normal Saline 250 ML 250 MG IVPB (13:47)
[2025-08-11 14:14] LABS: Cannabinoids THC Positive (Negative)
[2025-08-11] MEDS: Sodium Citrate 30 ML CUP PO (14:19)
--- NOTE | 2025-08-11 14:22 | HPE_ITS ---
Date of service: 08/11/25 Time of Service: 14:23 Assessment and Plan Assessment and plan (1) History of section: Status: Chronic Assessment and plan: Patient presents for scheduled section. Risks and benefits of the procedure include, but are not limited to, risk of bleeding, infection, and damage to surrounding tissues, as well as risks for thromboembolism. The risk associated with anesthesia as well as unforeseen complications. There is a risk for the need for blood transfusion. Patient strongly desires to maintain fertility. All questions answered to her and her satisfaction. She is consented for section in the setting of 37 and 6 gestation with proteinuria, contractions, and twin gestation. (2) Twin : Status: Acute OB-HPI Labor/Delivery History of Present Illness Reason for Visit: Delivery Chief Complaint: Scheduled Section , Inidcation for Scheduled C- Section: Previous .. LASHONDA Calculator Estimated Delivery Date Method Current WG Current Estimate 08/26/25 LMP (Certain) 37w 6d Other Estimates 08/26/25 Ultrasound #1 37w 6d 08/24/25 Ultrasound #2 38w 1d # 2 Comments: Patient presents for scheduled repeat section History of Present Expected Delivery Route/Plan with TL planned - MD STEPHENSON- Gianluca Ramos (first children) Specific Issues/Plan 1. Di-di Twin - ASA - MFM recommends glucose screening at 24 wks - Level 2 sono and MFM consult: WNL - Monthly growth scans starting at 24 wks; 06/18: EFW 24% and 96%. 07/14: - Weekly screening starting at 34 wks - delivery ~38wks: Aug 12 or 2. Prior CS x2 - plans repeat 3. Tobacco use: working on quitting. Smoking 13/ day. 4. MJ use daily, initial UDS=+THC, 28 wk UDS ___ 5. Anxiety/depression/ADHD, stopped vyvanse with - Consider [facility] referral, declines 6. caffeine use- headaches from cutting back. 7. History of Cholelithiasis. currently asymptomatic. 8. Laparscopic procedure @ [facility] December 2021: CS scar endometriosis on path report 9. Proteinuria: [id number], normal BPs and other labs. - Consulted MFM and they do not recommend delivery before 38wks unless elevated BPs. Review of Systems All systems reviewed & are unremarkable except as noted in HPI and below PFSH All Active Problems History of section (Chronic) N&V (nausea and vomiting) (Acute) Discordant growth in twin gestation (Acute) Chronic GERD (Acute) Cholelithiasis (Acute) Twin (Acute) Nasal congestion (Acute) GERD (gastroesophageal reflux disease) (Chronic) Tobacco use (Acute 10/27/17) Had quit but started again in October 2024. Interested in cutting back, maybe quitting. Medical History Vapes nicotine containing substance Marijuana abuse ADD (attention deficit disorder) Abdominal or pelvic swelling, mass, or lump, right lower quadrant Endometriosis -removed at [facility] December 2021 Anxiety and depression Rx with Wellbutrin. Surgical History delivery delivered 11/03/17. Scheduled. Breech presentation. F. wt:3455gm 01/11/23: scheduled RCS Tonsillectomy and adenoidectomy age 5 yrs Family History Mother Fibromyalgia Brain aneurysm age 48 Depression Maternal Grandmother Cancer Social History Smoking/Tobacco Use Status: Current every day Tobacco Type: cigarettes Smoking risk assessment performed?: Yes Alcohol Intake: former Substance use type: marijuana Counseling given: Yes Counseling provided: provider counseling Adopted: No Foster care: No Household members: significant other, children and other Details: Deni Hdez D-Hayden. Number of Children: 2 Communication Needs: None Do you feel safe at home: Yes Do you feel safe in your relationship?: Yes Female Reproductive History Menstrual control method: other History History 3 Para 2 Hx # Term Pregnancies 2 Multiple births 0 Hx # Pregnancies 0 Ectopic pregnancies 0 AB induced 0 Hx Number of Living Children 2 AB spontaneous 0 Past Pregnancies Del. Date GA/Weeks # Preg Succ Route Wgt Sex Labor Lgth Anesth esia Location Prov [facility] 11/03/17 39 No Yes 7 lb 10 oz Female N [facility] - Dr. Mccarthy 01/11/23 39 No Yes 7 lb 10 oz Female N [facility] Tiffany Delivery Date: 11/03/17 Last Updated by: Jolie Allen MD declined ECV, sched'ed C/S for breech Harriet Had R side CS scar endometriosis removed at [facility] December 2021 Delivery Date: 01/11/23 Last Updated by: Jacquelyn Mccarthy MD Elective repeat. Storm. . Meds Allergies and Home Medications Allergies Allergy/AdvReac Type Severity Reaction Status Date / Time latex Allergy Severe rash and Verified 07/18/25 18:47 swelling Home Medications ?Medication ?Instructions ?Recorded ?Confirmed ?Type vm-gor-vppsd 180 mcg-om3 32.5 tab PO 01/14/25 08/04/[address]-wor-hgl-other bt2p-uwlk chew tablet ( Gummies (DHA-EPA)) Saccharomyces boulardii 250 mg 5,000 mmu cells PO DION Y PRN 02/12/25 08/04/25 History capsule (Digest Probiotic (S.boulardii)) aspirin 81 mg tablet 81 mg PO DAILY 02/12/2507/15 History docusate sodium 50 mg tablet 50 mg PO DAILY PRN PRN 08/04/25 History omeprazole 40 mg capsule,delayed 40 mg PO QAM #30 caps 07/22/25 08/04/25 Rx release Exam Physical Exam Vital signs: Temp Pulse BP Pulse Ox 98.2 F 104 H 132/73 99 08/11/25 13:42 08/11/25 14:18 08/11/25 13:42 08/11/25 14:18 Narrative: General: Well-nourished female in no immediate distress Pulm: No overt respiratory distress; able to speak in complete sentences; clear to auscultation bilaterally Card: No overt arrhythmias Abdomen: Nondistended Extremities: No overt swelling Psych: Cooperative, appropriate FHT: Category 1 for both babies Erda: Irregular; patient reports feeling them intermittently Detailed Labor and Delivery Exam Kuhn Score: Cervical Points Exam 0 1 2 3 Dilation Closed 1-2cm 3-4 cm 5-6cm Effacement 0-30% 40-50% 60-70% 80% Consistency Firm Medium Soft Station -3 -2 -1,0 +1,+2 Position Posterior Mid Anterior Results Abnormal Lab Findings: Abnormal Labs 08/11/25 13:00 RBC 3.49 L Hgb 10.5 L Hct 31.1 L U Cannabinoids Screen Positive A Risk Assessment Risk for Shoulder Dystocia Historical/Initial OB: POSITIVE FOR: Pre- BMI>30; NEGATIVE FOR: Pelvic Abnormality, Previous Shoulder Dystocia or Previous Macrosomia Risk for Pre-Eclampsia Yes, if one or more: POSTIVE FOR: Multiple Gestation; NEGATIVE FOR: Hx Pre-E/Gest HTN, Chronic HTN, Pre-gestational DM, Renal Disease, Systemic Lupus or APA Syndrome Yes, if 2 or more: POSITIVE FOR: BMI>30; NEGATIVE FOR: Nulliparity, Age>= 35 yrs, >10yr btwn pregnancies, ethinicty, Mother/Sister w/ Pre-E or Previous IUGR Risk for Post- Hemorrhage Initial: NEGATIVE FOR: Multiple Gestation, Previous PPH, Known Clotting Deficiency, Grand Multiparity or Anticoagulation Risks Reviewed Risks Reviewed Upon Admission: Yes
--- NOTE | 2025-08-11 14:23 | W.ANESPRE ---
General Info Date of Service Date Performed: 08/11/25 Height: 5 ft 10 in Weight: 122.47 kg Body Mass Index (BMI): 38.7 Surgical Procedure: Operation Date: 08/11/25 14:40 Proposed Procedure Side Surgeon p Section Venita Montejo, Meds Allergies and Home Medications Allergies Allergy/AdvReac Type Severity Reaction Status Date / Time latex Allergy Severe rash and Verified 07/18/25 18:47 swelling Home Medication ?Medication ?Instructions ?Recorded ev-lbh-vsyzb 180 mcg-om3 32.5 tab PO 01/14/25 uu-fop-wis-other wk7t-faza chew tablet ( Gummies (DHA-EPA)) Saccharomyces boulardii 250 mg 5,000 mmu cells PO DAILY PRN 02/12/25 capsule (Digest Probiotic (S.boulardii)) aspirin 81 mg tablet 81 mg PO DAILY 02/12/25 docusate sodium 50 mg tablet 50 mg PO DAILY PRN PRN 02/12/25 omeprazole 40 mg capsule,delayed 40 mg PO QAM #30 caps 07/22/25 release Current Visit Medications: Current Medications Generic Name Dose Route Start Last Admin Trade Name Freq PRN Reason Stop Dose Admin Citric Acid/Sodium Citrate 30 ml 08/11/25 13:00 08/11/25 14:19 Sodium Citrate 30 Ml Cup PO 30 ml PREOP DAVIS Administration Cefazolin Sodium/Dextrose 2 gm in 50 mls @ 100 mls/hr 08/11/25 12:15 Ancef Duplex IVPB PREOP DAVIS Azithromycin 500 mg/ Sodium 250 mls @ 250 mls/hr 08/11/25 12:15 08/11/25 13:47 Chloride IVPB 250 mls/hr PREOP DAVIS Administration Ringer's Solution 1,000 mls @ 200 mls/hr 08/11/25 12:15 08/11/25 13:46 IV 200 mls/hr INFUSION DAVIS Administration [facility] Active Problems Active Problems: Problem Status Onset Code N&V (nausea and vomiting) Acute R11.2 Discordant growth in twin gestation Acute O30.009, O36.5990 Chronic GERD Acute K21.9 Cholelithiasis Acute K80.20 Twin Acute O30.009 Nasal congestion Acute R09.81 GERD (gastroesophageal reflux disease) Chronic K21.9 Tobacco use Acute 10/27/17 Z72.0 Medical History Medical History Vapes nicotine containing substance Marijuana abuse ADD (attention deficit disorder) Abdominal or pelvic swelling, mass, or lump, right lower quadrant Endometriosis -removed at [facility] December 2021 Anxiety and depression Rx with Wellbutrin. Surgical History Surgical History delivery delivered 11/03/17. Scheduled. Breech presentation. F. wt:3455gm 01/11/23: scheduled RCS Tonsillectomy and adenoidectomy age 5 yrs Tobacco Smoking/Tobacco Use Status: Current every day Tobacco Type: cigarettes Alcohol Alcohol Intake: former Substance Use Substance use type: marijuana Counseling provided: provider counseling Prental History History 3 Para 2 Hx # Term Pregnancies 2 Multiple births 0 Hx # Pregnancies 0 Ectopic pregnancies 0 AB induced 0 Hx Number of Living Children 2 AB spontaneous 0 Past Pregnancies Del. Date GA/Weeks # Preg Succ Route Wgt Sex Labor Lgth Anesthesia Location [facility] 11/03/17 39 No Yes 3458.642 g Female [facility] - Dr. Mccarthy 01/11/23 39 No Yes 3458.642 g Female [facility] Tiffany Delivery Date: 11/03/17 Last Updated by: Jolie Allen MD declined ECV, sched'ed C/S for breech Harriet Had R side CS scar endometriosis removed at [facility] December 2021 Delivery Date: 01/11/23 Last Updated by: Jacquelyn Mccarthy MD Elective repeat. [place]. . Vital Signs and Lab Results Vital Signs Most Recent Vital Signs in EMR: Most Recent Vital Signs Temp Pulse BP Pulse Ox 36.8 C 104 H 132/73 99 08/11/25 13:42 08/11/25 14:18 08/11/25 13:42 08/11/25 14:18 Lab Results 08/11/25 13:00 Blood Type / Crossmatch: Antibody Screen NEGATIVE Today Complete Blood Count: WBC, (4.4-10.8) 6.74 10^3/uL Today, 13:00 RBC, (3.93-5.22) 3.49 10^6/uL L Today, 13:00 Hgb, (11.2-15.7) 10.5 g/dL L Today, 13:00 Hct, (36.0-46.0) 31.1 % L Today, 13:00 Plt Count, (130-400) 231 10^3/uL Today, 13:00 Complete Metabolic Panel: Sodium, (136-145) 140 mmol/L 08/08/25, 12:42 Potassium, (3.5-5.1) 3.7 mmol/L 08/08/25, 12:42 Chloride, (98-107) 108 mmol/L H 08/08/25, 12:42 Carbon Dioxide, (20.0-31.0) 23.1 mmol/L 08/08/25, 12:42 BUN, (9-23) 9 mg/dL 08/08/25, 12:42 Creatinine, (0.55-1.02) 0.55 mg/dL 08/08/25, 12:42 Est GFR (CKD-EPI 2020), (mL/min/1.73m2) 130.89 08/08/25, 12:42 Magnesium, (1.6-2.6) 1.5 mg/dL L 07/18/25, 19:35 Calcium, (8.3-10.6) 8.5 mg/dL 08/08/25, 12:42 Albumin, (3.2-5.0) 3.6 g/dL 08/08/25, 12:42 Glucose, (74-106) 70 mg/dL L 08/08/25, 12:42 Liver Function Panel: ALT, (10-49) 14 U/L 08/08/25, 12:42 AST, (<34) 16 U/L 08/08/25, 12:42 Infectious Disease: SARS-CoV-2 (PCR), (Negative) Negative 07/18/25, 19:05 COVID-19 Source Nasopharynx 07/18/25, 19:05 Influenza Type A (PCR), (Negative) Negative 07/18/25, 19:05 Influenza Type B (PCR), (Negative) Negative 07/18/25, 19:05 RSV (PCR), (Negative) Negative 07/18/25, 19:05 Toxicology Panel: Ur Amphetamines Screen, (Negative) Negative Today, 13:00 U Benzodiazepines Scrn, (Negative) Negative Today, 13:00 Ur Barbiturates Screen, (Negative) Negative Today, 13:00 Urine Cocaine Screen, (Negative) Negative Today, 13:00 Urine Methadone Screen, (Negative) Negative Today, 13:00 Urine Opiates Screen, (Negative) Negative Today, 13:00 Ur Tricyclics Screen, (Negative) Negative Today, 13:00 Imaging and Studies Imaging and Studies Study information below may be from another EMR and interpreted by another provider. Please see original notes in EMR for more complete details. Pulmonary Function Summary: 12/2016: IMPRESSION: Normal pulmonary function study. Anesthesia Assessment and Plan Anesthesia History Personal History: No History of Anesthesia Complications Family History: No Family History of Anesthesia Complications Exercise Tolerance Exercise Tolerance: Metabolic Equivalents>4 Pertinent Negatives Pertinent Negatives: No Symptoms of GERD Cardiac & Pulmonary Exam Cardiac Exam: Normal S1/S2 Heart Sounds Pulmonary Exam: Clear Bilateral Breath Sounds Implantable Cardiac Device Does patient have a Pacemaker or an ICD?: No Airway Exam Known Difficult Airway: No Mallampati Class: 3 Mouth Opening: Normal (> 3cm) Thyromental Distance: Greater than 3 cm Neck Range of Motion: Full ROM Neck Circumference: Normal Teeth Condition: Normal Dentition ASA Classification ASA Score: ASA 2 Emergency Case?: No NPO Status NPO Status: NPO Clears >2 hours, Solids >8 hours Status Status: Confirmed Anesthesia Plan Resuscitation Status: Full Code Anesthesia Technique: Spinal Anesthesia Airway Planned: Natural Airway Pain Management: Intrathecal Analgesia Monitors Used: Standard Monitors
[2025-08-11] MEDS: ceFAZolin 2 GM/50 ML BAG IVPB (15:00)
[2025-08-11] MEDS: Bupivacaine 0.25% Pres-Free 30 ML VIAL (15:43)
--- NOTE | 2025-08-11 16:40 | W.PM.OBCSECT ---
Date of service: 08/11/25 Time of Service: 16:40 Operative Note Operative Note Delivery Method: Scheduled DATE OF PROCEDURE: 08/11/25 PRE-OP DIAGNOSES: Di/di twin gestation in the setting of proteinuria and contractions. There POST-OP DIAGNOSES: same PROCEDURE: Low-transverse section SURGEON: Ventia Montejo Assisting Surgeon: Jolie Allen Anesthesia: spinal Estimated blood loss (mL): 1,000 Pathology: other (Placenta; twin A marked with umbilical cord clip) Complications: None Patient was transported to: floor Patient's condition: stable Indications: 29-year-old G3 now P3004 presented to labor and delivery for scheduled delivery for history of delivery x 2 in the setting of di/di twins with proteinuria and contractions. The procedure was explained in detail and the patient was consented for repeat low-transverse section with blood products as needed. Findings: Moderate adhesions noted throughout the layers. Notable adhesions of the omentum through the midline with some attachment to the fascia. Viable di/di twin gestation in cephalic cephalic presentation with clear amniotic fluid. Procedure Description: Patient was taken to the OR with IV fluids running.? She received 2 grams of Ancef and 500 mg Azithromycin were administered for prophylaxis prior to heading to the OR. Spinal anesthesia was established, and the patient was positioned into supine positioning with her arms abducted at her sides.? The vagina was prepped with Betadine.? A dacosta catheter was inserted using sterile technique. A Traxi was applied to the abdomen. The abdomen was then prepped with Chlorohexedine and allowed to dry for three minutes.? The patient was then draped in the usual, sterile fashion, and the bed was placed at a leftward tilt.? The abdomen was marked with the intended pfannestiel site. A timeout was performed; the patient and procedure were identified.? Testing of the levels of anesthesia was found to be adequate.?? The old pfannestiel incision was excised using a scalpel, and the subcutaneous tissue was incised and carried down to the fascia with bovie cautery.? The fascia was incised, and the incision was carried laterally with curved meyers scissors. The anterior leaf of fascia was then tented up with kocker claps, and the underlying rectus muscle as well as adhered omentum were carefully dissected off with a combination of blunt and sharp dissection with careful attention to avoid any potential underlying bowel.? The same was done for the inferior leaf.? The midline of the rectus was identified and bluntly dissected revealing the underlying peritoneum, and a natural defect was appreciated.? A large Dg retractor was placed.? A bladder flap was created and the bladder was secured low into the pelvis.? A low transverse incision was made using a fresh #10 blade, and the incision was extended using blunt traction.? The fluid sac of baby A was ruptured with an allis clamp, and clear fluid was noted. The fetus was presenting as a vertex. The head was brought to the level of the hysterotomy with careful attention to avoid using the incision as a fulcrum.? The rest of the body followed easily with gentle fundal pressure from the branch assistant. The cord was clamped twice and cut and the baby transferred to the warmer, awaiting the pediatric staff.? The same was then done for baby B without issue. Pitocin were initiated.? Cord blood was obtained. The placenta was then delivered with assistance and fundal massage. The uterus was explored to ensure all tissue was cleared. Attempts to exteriorize the uterus did not provide adequate visualization, and therefore, the uterus was left in situ.? Penningtons were used to grasp the lower uterine segment, and the uterine incision was closed with a running locked layer of 0 Vicryl.? A second layer of 0 Vicryl imbricating stitch was used to secure the hysterotomy.? An initial assessment found in the hysterotomy hemostatic.??? Stats were used to grasp the peritoneum, and the layer was closed using a running 2-0 vicryl with careful attention to guard any underlying bowel with retraction.? Careful inspection of the rectus muscle appreciated good hemostasis.? The right apex of the fascia was secured with a kocker clamp, and the fascia was then closed with a running 0-vicryl.? Careful inspection of the subcuticular tissues appreciated good hemostasis, and this layer was closed with a running 3-0 vicryl.? 20 cc's of 0.25% Marcaine was injected into the subcuticular tissues, and hemostasis was again confirmed.? The skin was reapproximated with a 4-0 vicryl subcuticular stitch.? The patient tolerated the procedure well.? The incision was cleaned and covered with a telfa sheet, ABD pad, and medipore tape.? She was then taken to the PACU in good condition.
--- NOTE | 2025-08-11 16:46 | W.ANESPOSTOP ---
Postoperative Evaluation Date, Time and Location Date Performed: 08/11/25 Time Performed: 16:46 Patient Location: Obstetrics Vital Signs Most Recent Imported Vital Signs: Most Recent Vital Signs Temp Pulse BP Pulse Ox 36.8 C 91 H 132/78 98 08/11/25 13:42 08/11/25 16:45 08/11/25 16:43 08/11/25 16:45 Assessment Mental Status: Awake (Alert & Oriented to Patient Baseline) Airway and Respiratory Function: Patent airway with normal (patient baseline) respiratory exam Cardiovascular Function: Hemodynamically Stable Hydration Status: Adequately Hydrated Nausea & Vomiting: No Nausea or Vomiting Pain: Pt. Denies Any Pain Peripheral Nerve Block: Patient did not receive a nerve block Postoperative Comments:: Spinal still in effect, hemodynamically stable. RN's will continue to assess level until resolution over the next 2 hours
[2025-08-11] MEDS: TRANEXAMIC ACID/SOD. CHL. 1,000 MG/100 ML BAG 600 MG (19:15)
[2025-08-11] MEDS: Lactated Ringers 1,000 ML 999 ML IV (19:35)
--- NOTE | 2025-08-11 19:55 | W.PM.OBPNV1 ---
Date of service: 08/11/25 Time of Service: 19:55 Assessment and Plan Assessment and plan (1) History of section: Status: Chronic (2) Twin : Status: Acute Assessment and plan: 29-year-old G3 now P3004 s/p 37 LTCS performed 08/11/2025 - Rh +/ Rub I/ VZV I/ GBS negative - complicated by history of x 2, di/di twin gestation, cigarette smoking, marijuana smoking, anxiety/depression/ADHD, endometriosis - Intrapartum course uncomplicated - course pending - Not yet ambulating; still has Quan in; not yet eating - Lochia evaluation pending - Breast-feeding pending - Contraceptive planning: Pending - Last Pap smear 05/27/2024-negative cytology - depression counseling pending - Narcotic counseling: Pending - Pelvic rest counseling pending - - - - - - - - - - - - - - - - - 08/11/2025 @ 1930 ([place]): Is called to the patient's room by the nurse; patient states that since the patient arrived back to the floor (around 5 PM) she had soaked one of her Chux. The check was measured for approximately 400 cc. Her urine output was also scant. Transexamic acid was ordered and I went in to evaluate the patient at the bedside. She reported feeling very well and appeared to be resting comfortably without issue. Transexamic acid had just completed. Patient had already been noted to be dry in the OR; therefore, I initiated a fluid bolus. Of note, patient did say that she had been trying to drink water since she arrived on the floor. Personal assessment of her bleeding found to be reassuring; fundus is firm and low without concerning bleeding with Crede. Lab has not collected blood from postop yet; nurse called lab and they will be on their way up to collect. I discussed the plan of action with the patient and all questions were answered to her and her partner's satisfaction. We will continue to monitor her bleeding closely. - - - - - - - - - - - - - - - - - Exam Physical Exam Vital signs: Temp Pulse BP Pulse Ox 98.2 F 88 128/82 100 08/11/25 13:42 08/11/25 19:51 08/11/25 19:45 08/11/25 19:51 Narrative: General: Well-nourished female in no immediate distress Pulm: No overt respiratory distress; able to speak in complete sentences Abdomen: Nondistended; non-tender. Fundus is firm and low. Incision is covered and clean Extremities: No overt swelling Psych: Cooperative, appropriate Results Hemoglobin/Hematocrit: Hgb 10.5 g/dL (11.2-15.7) L 08/11/25 13:00 Hct 31.1 % (36.0-46.0) L 08/11/25 13:00 Abnormal Lab Findings: Abnormal Labs 08/11/25 13:00 RBC 3.49 L Hgb 10.5 L Hct 31.1 L U Cannabinoids Screen Positive A
[2025-08-11] MEDS: Oxytocin/Normal Saline 30 UNIT/500 ML BAG 95 UNITS IV (20:14)
[2025-08-11 20:18] LABS: Abs Immature Grans 0.04 10^3/uL (0.0-0.06); HCT 28.0 % (36.0-46.0); HGB 9.4 g/dL (11.2-15.7); Immature Grans % 0.3 %; MCH 30.1 pg (27.0-33.0); MCHC 33.6 % (32.0-36.0); MCV 90 fL (80-95); MPV 9.5 fL (8.0-11.0); Platelet Count 226 10^3/uL (130-400); RBC 3.12 10^6/uL (3.93-5.22); RDW 12.1 % (11.7-14.6); RDW-SD 38.4 fL; WBC 12.22 10^3/uL (4.4-10.8)
[2025-08-11] MEDS: Lactated Ringers 1,000 ML 55 ML IV (20:40)
--- NOTE | 2025-08-11 21:15 | W.PM.PROGNOT ---
Date of Service Date of service: 08/11/25 Time of Service: 21:15 Assessment and Plan Assessment and plan (1) Twin : Status: Acute (2) Discordant growth in twin gestation: Status: Acute (3) History of section: Status: Chronic Assessment and plan: 29-year-old G3 now P3004 s/p 37 LTCS performed 08/11/2025 - Rh +/ Rub I/ VZV I/ GBS negative - complicated by history of x 2, di/di twin gestation, cigarette smoking, marijuana smoking, anxiety/depression/ADHD, endometriosis - Intrapartum course uncomplicated - course pending - Not yet ambulating; still has Quan in; not yet eating - Lochia evaluation pending - Breast-feeding pending - Contraceptive planning: Pending - Last Pap smear 05/27/2024-negative cytology - depression counseling pending - Narcotic counseling: Pending - Pelvic rest counseling pending - - - - - - - - - - - - - - - - - 08/11/2025 @ 1930 ([place]): Is called to the patient's room by the nurse; patient states that since the patient arrived back to the floor (around 5 PM) she had soaked one of her Chux. The check was measured for approximately 400 cc. Her urine output was also scant. Transexamic acid was ordered and I went in to evaluate the patient at the bedside. She reported feeling very well and appeared to be resting comfortably without issue. Transexamic acid had just completed. Patient had already been noted to be dry in the OR; therefore, I initiated a fluid bolus. Of note, patient did say that she had been trying to drink water since she arrived on the floor. Personal assessment of her bleeding found to be reassuring; fundus is firm and low without concerning bleeding with Crede. Lab has not collected blood from postop yet; nurse called lab and they will be on their way up to collect. I discussed the plan of action with the patient and all questions were answered to her and her partner's satisfaction. We will continue to monitor her bleeding closely. 08/11/2025 at 2030 ([place]): Patient is again found resting in bed very comfortably. Her hemoglobin has dropped appropriately from what would be expected from the time of the procedure. Urine output is improving. Vitals are appropriate. Bleeding is substantially improved. Will continue to monitor throughout the evening closely. Will continue Pitocin. Patient strongly advised to continue oral hydration. Will run fluids at the 150 cc an hour total over the next 4 hours and repeat CBC at the end of this time. - - - - - - - - - - - - - - - - - Exam Narrative Exam Narrative: General: Well-nourished female in no immediate distress Pulm: No overt respiratory distress; able to speak in complete sentences Abdomen: Nondistended; non-tender. Fundus is firm and low. Incision is covered and clean Extremities: No overt swelling Psych: Cooperative, appropriate Objective Last Vital Signs Temp 98.2 F 08/11/25 20:50 Pulse 91 H 08/11/25 21:11 Resp 18 08/11/25 21:00 BP 131/68 08/11/25 20:53 Pulse Ox 98 08/11/25 21:11 Laboratory Results - last 24 hr 08/11/25 08/11/25 13:00 20:00 WBC 6.74 12.22 H RBC 3.49 L 3.12 L Hgb 10.5 L 9.4 L Hct 31.1 L 28.0 L MCV 89 90 MCH 30.1 30.1 MCHC 33.8 33.6 RDW 12.1 12.1 Plt Count 231 226 MPV 9.4 9.5 Immature Gran % 0.3 0.3 Neutrophils % 67.0 78.2 Lymphocytes % 26.4 14.7 Monocytes % 5.9 6.5 Eosinophils % 0.1 0.1 Basophils % 0.3 0.2 Nucleated RBC % 0.0 0.0 Absolute Neutrophils 4.51 9.56 H Absolute Lymphocytes 1.78 1.80 Absolute Monocytes 0.40 0.79 Absolute Eosinophils 0.01 0.01 Absolute Basophils 0.02 0.02 Urine Opiates Screen Negative Urine Methadone Screen Negative Urine Fentanyl Screen Negative Ur Barbiturates Screen Negative Ur Tricyclics Screen Negative Ur Amphetamines Screen Negative U Benzodiazepines Scrn Negative Urine Cocaine Screen Negative U Cannabinoids Screen Positive A ABO/Rh A Positive Antibody Screen NEGATIVE VTE Prohylaxis Risk Level: Moderate/High Risk Contraindications: Active bleed/high bleed risk Prophylaxis: Mechanical Time Spent with Patient Time Spent with Patient: 25-34 minutes Time was spent: preparing to see the patient(eg.review tests), obtaining and/or reviewing [facility], ordering medications,tests, procedures, referring, communicating with other health childcare director, indepentently interpreting results and counseling the patient
[2025-08-11] MEDS: Acetaminophen 325 MG TAB 650 MG PO (21:21)
[2025-08-11] MEDS: Docusate Sodium 100 MG CAP PO (21:22)
[2025-08-12] VITALS (26 sets, daily range): BP systolic 122–138; BP diastolic 74–94; PULSE 83–98; RESP 16–19; TEMP 36.3–36.9; O2SAT 89–100
[2025-08-12 00:37] LABS: Abs Immature Grans 0.04 10^3/uL (0.0-0.06); HCT 27.0 % (36.0-46.0); HGB 9.0 g/dL (11.2-15.7); Immature Grans % 0.4 %; MCH 29.9 pg (27.0-33.0); MCHC 33.3 % (32.0-36.0); MCV 90 fL (80-95); MPV 9.3 fL (8.0-11.0); Platelet Count 199 10^3/uL (130-400); RBC 3.01 10^6/uL (3.93-5.22); RDW 12.2 % (11.7-14.6); RDW-SD 39.4 fL; WBC 9.71 10^3/uL (4.4-10.8)
[2025-08-12] MEDS: Acetaminophen 325 MG TAB 650 MG PO ×3 (02:45→15:26)
[2025-08-12] MEDS: Docusate Sodium 100 MG CAP PO (08:30)
[2025-08-12] MEDS: oxyCODONE 5 MG TAB PO (08:59)
[2025-08-12] MEDS: Ibuprofen 600 MG TAB PO ×2 (13:11→20:56)
[2025-08-13 01:00] VITALS: BP 133/81; PULSE 92; RESP 18; TEMP 36.5; O2SAT 98
[2025-08-13] MEDS: Acetaminophen 325 MG TAB 650 MG PO ×3 (01:04→14:59)
[2025-08-13] MEDS: Ibuprofen 600 MG TAB PO ×3 (01:04→14:59)
[2025-08-13] MEDS: Docusate Sodium 100 MG CAP PO ×2 (01:04→09:54)
[2025-08-13 02:04] LABS: Abs Immature Grans 0.03 10^3/uL (0.0-0.06); HCT 26.2 % (36.0-46.0); HGB 8.6 g/dL (11.2-15.7); Immature Grans % 0.3 %; MCH 29.7 pg (27.0-33.0); MCHC 32.8 % (32.0-36.0); MCV 90 fL (80-95); MPV 9.3 fL (8.0-11.0); Platelet Count 220 10^3/uL (130-400); RBC 2.90 10^6/uL (3.93-5.22); RDW 12.4 % (11.7-14.6); RDW-SD 40.1 fL; WBC 8.74 10^3/uL (4.4-10.8)
[2025-08-13 02:23] LABS: ALT 13 U/L (10-49); AST 17 U/L (<34); Albumin 3.4 g/dL (3.2-5.0); Alkaline Phosphatase 114 U/L (46-116); Anion Gap 10.3 mmol/L (3-11); BUN 9 mg/dL (9-23); Bilirubin, Total 0.3 mg/dL (0.2-1.2); CO2 22.7 mmol/L (20.0-31.0); Calcium 8.2 mg/dL (8.3-10.6); Chloride 109 mmol/L (98-107); Glucose 137 mg/dL (74-106); Potassium 3.6 mmol/L (3.5-5.1); Sodium 142 mmol/L (136-145); Total Protein 5.8 g/dL (5.7-8.2)
[2025-08-13 02:26] LABS: Hypochromasia 1+
[2025-08-13 09:00] VITALS: BP 125/81; PULSE 93; TEMP 36.7
[2025-08-13] MEDS: Milk of Magnesia 30 ML CUP PO (09:54)
--- NOTE | 2025-08-13 09:55 | DSE_ITS ---
Date of service: 08/13/25 Time of Service: 09:55 DS: Diagnosis Discharge Diagnosis (1) History of section: Status: Chronic Asessment and Plan: 29yo POD#2 s/p RCS with di/di twins. She is doing well and desires d/c to home. She had some mildly elevated BPs yesterday and had normal labs. She will check her BP at her family doc's office on monday when she takes the babies and will return here next week to see Dr. Montejo. She is worried that she hasn't had a BM yet but she has been able to pass gas and is eating without n/v. She has chronic issues with constipation and takes a stool softener at home. Minimal lochia and pain managed on tylenol and ibuprofen. Discharge Plan Disposition Patient Disposition: Home Condition: Good Discharge Details Reason For Visit: Delivery Admit Date/Time: 08/11/25 12:15 Admit Provider: Jolie Allen Attending Provider: Venita Montejo [facility] Hospital Course: Pt underwent RCS for di/di twins @ 37.6wks which was uncomplicated. She had a routine post-op course. She had 2 mild range BPs on PPD#1 and had PEC labs checked, which were normal. She did have isolated proteinuria prior to delivery with normal BPs during her course. Home Meds and New Rx's Prescriptions: New acetaminophen 325 mg Tablet 650 mg PO Q4H PRN PRNQty: 0 0RF ibuprofen 600 mg Tablet 600 mg PO Q6H Qty: 90 0RF Continued Saccharomyces boulardii [Digest Probiotic (S.boulardii)] 250 mg capsule 5,000 mmu cells PO DAILY PRN docusate sodium 50 mg tablet 50 mg PO DAILY PRN PRN Gummies (DHA-EPA) 180 mcg-32.5mg- 25 mg-7.5 mg tablet,chewable PO Discontinued aspirin 81 mg tablet 81 mg PO DAILY omeprazole 40 mg capsule,delayed release(DR/EC) 40 mg PO QAM Qty: 30 4RF Rx Instructions: Take 30-60min before breakfast Discharge Instructions Stand Alone Forms: BC Instructions, BC Discharge Instruc, Portal Information Activity:: No lifting >20lbs Equipment/Supplies:: No Equipment Needed Diet:: As Tolerated Discharge Orders Discharge Orders: Discharge Order (Routine); Ordered 08/13/25 Ordered By: Jolie Allen OB:DS Summary Contraception Discussed Contraception Discussed: Yes Contraceptive Plan: Undecided, [place] Gender-Baby A: Female weight: 5 lb 4.799 oz Gender-Baby B: Female Weight-Baby B: 7 lb 3.522 oz Status at Discharge Functional status at discharge: independent ambulation Overall status at discharge: patient is back to baseline Mental Status: mental status grossly normal Speech and Movement: speech and movement normal Mood: congruent mood Affect: normal affect Exam Physical Exam Vital signs: Temp Pulse Resp BP Pulse Ox 97.7 F 92 H 18 133/81 98 08/13/25 01:00 08/13/25 01:00 08/13/25 01:00 08/13/25 01:00 08/13/25 01:00 Vital Signs Reviewed: Yes Constitutional Constitutional: no acute distress and cooperative Detailed HEENT Exam Head: Present normocephalic and atraumatic Respiratory Exam Respiratory Exam: Normal Abdominal Exam Abdomen: Tender (mildly) Comments: Incision clean, dry, intact Fundal Exam Fundus: Below Umbilicus and Firm Extremities Exam Extremity Exam: Edema (trace) Detailed Neurological Exam Neurological: Present alert, oriented X3 and CN II-XII intact PFSH All Active Problems History of section (Chronic) N&V (nausea and vomiting) (Acute) Discordant growth in twin gestation (Acute) Chronic GERD (Acute) Cholelithiasis (Acute) Twin (Acute) Tobacco use (Acute 10/27/17) Had quit but started again in October 2024. Interested in cutting back, maybe quitting. GERD (gastroesophageal reflux disease) (Chronic) Nasal congestion (Acute) Medical History Vapes nicotine containing substance Marijuana abuse ADD (attention deficit disorder) Abdominal or pelvic swelling, mass, or lump, right lower quadrant Endometriosis -removed at [facility] December 2021 Anxiety and depression Rx with Wellbutrin. Surgical History delivery delivered 11/03/17. Scheduled. Breech presentation. F. [id number] 01/11/23: scheduled RCS Tonsillectomy and adenoidectomy age 5 yrs Family History Mother Fibromyalgia Brain aneurysm age 48 Depression Maternal Grandmother Cancer Social History Smoking/Tobacco Use Status: Current every day Tobacco Type: cigarettes Smoking risk assessment performed?: Yes Alcohol Intake: former Substance use type: marijuana Counseling given: Yes Counseling provided: provider counseling Adopted: No Foster care: No Household members: significant other, children and other Details: VALERIE-Deni Pineda D-Hayden. Number of Children: 2 Communication Needs: None Do you feel safe at home: Yes Do you feel safe in your relationship?: Yes Female Reproductive History Menstrual control method: other History History 3 Para 2 Hx # Term Pregnancies 2 Multiple births 0 Hx # Pregnancies 0 Ectopic pregnancies 0 AB induced 0 Hx Number of Living Children 2 AB spontaneous 0 Past Pregnancies Del. Date GA/Weeks # Preg Succ Route Wgt Sex Labor Lgth Anesth esia Location Prov Complic 11/03/17 39 No Yes 7 lb 10 oz Female N [facility] - Dr. Mccarthy 01/11/23 39 No Yes 7 lb 10 oz Female N [facility] Tiffany Delivery Date: 11/03/17 Last Updated by: Jolie Allen MD declined ECV, sched'ed C/S for breech Harriet Had R side CS scar endometriosis removed at [facility] December 2021 Delivery Date: 01/11/23 Last Updated by: Jacquelyn Mccarthy MD Elective repeat. Storm. . DS: Data Vitals/I&O Vitals and I&O: Vital Signs Temperature 97.7 F 08/13/25 01:00 Temperature Source Tympanic 08/13/25 01:00 Pulse 92 H 08/13/25 01:00 Pulse Rhythm Regular 08/12/25 20:30 Respiratory Rate 18 08/13/25 01:00 Blood Pressure 133/81 08/13/25 01:00 Blood Pressure Mean 98 08/13/25 01:00 Pulse Oximetry 98 08/13/25 01:00 Pain Level 1 12/30/25 16:35 Intake & Output 08/12/25 08/12/25 08/13/25 11:59 23:59 11:59 Intake Total 617.750 / 617.750 Output Total 1600 / 2200 600 / 2200 Balance -982.250 / -1582.250 -600 / -1582.250 Intake: IV 617.750 / 617.750 Output: Urine 1600 / 2200 600 / 2200 Other: Urine Color Yellow Yellow Urine Appearance Clear Clear Hematuria Hematuria Urine Odor None Data Completed and Pending Pending Labs at Discharge: 08/11/25 08/11/25 08/12/25 13:00 20:00 00:29 WBC 6.74 12.22 H 9.71 RBC 3.49 L 3.12 L 3.01 L Hgb 10.5 L 9.4 L 9.0 L Hct 31.1 L 28.0 L 27.0 L MCV 89 90 90 MCH 30.1 30.1 29.9 MCHC 33.8 33.6 33.3 RDW 12.1 12.1 12.2 Plt Count 231 226 199 MPV 9.4 9.5 9.3 Immature Gran % 0.3 0.3 0.4 Neutrophils % 67.0 78.2 72.1 Lymphocytes % 26.4 14.7 19.1 Monocytes % 5.9 6.5 8.1 Eosinophils % 0.1 0.1 0.1 Basophils % 0.3 0.2 0.2 Nucleated RBC % 0.0 0.0 0.0 Absolute Neutrophils 4.51 9.56 H 7.00 H Absolute Lymphocytes 1.78 1.80 1.85 Absolute Monocytes 0.40 0.79 0.79 Absolute Eosinophils 0.01 0.01 0.01 Absolute Basophils 0.02 0.02 0.02 RBC Morphology Hypochromasia Sodium Potassium Chloride Carbon Dioxide Anion Gap BUN Creatinine Est GFR (CKD-EPI 2020) Glucose Calcium Total Bilirubin AST ALT Alkaline Phosphatase Lactate Dehydrogenase Total Protein Albumin Urine Opiates Screen Negative Urine Methadone Screen Negative Urine Fentanyl Screen Negative Ur Barbiturates Screen Negative Ur Tricyclics Screen Negative Ur Amphetamines Screen Negative U Benzodiazepines Scrn Negative Urine Cocaine Screen Negative U Cannabinoids Screen Positive A Chlamydia DNA Probe Pending Chlamydia/GC DNA Source Pending N.gonorrhoeae DNA Probe Pending ABO/Rh A Positive Antibody Screen NEGATIVE 12/31/25 12/31/25 01:46 01:56 WBC 8.74 RBC 2.90 L Hgb 8.6 L Hct 26.2 L MCV 90 MCH 29.7 MCHC 32.8 RDW 12.4 Plt Count 220 MPV 9.3 Immature Gran % 0.3 Neutrophils % 71.6 Lymphocytes % 22.0 Monocytes % 5.1 Eosinophils % 0.5 Basophils % 0.5 Nucleated RBC % 0.0 Absolute Neutrophils 6.26 Absolute Lymphocytes 1.92 Absolute Monocytes 0.45 Absolute Eosinophils 0.04 Absolute Basophils 0.04 RBC Morphology See Below Hypochromasia 1+ Sodium 142 Potassium 3.6 Chloride 109 H Carbon Dioxide 22.7 Anion Gap 10.3 BUN 9 Creatinine 0.68 Est GFR (CKD-EPI 2020) 102.45 Glucose 137 H Calcium 8.2 L Total Bilirubin 0.3 AST 17 ALT 13 Alkaline Phosphatase 114 Lactate Dehydrogenase Cancelled Total Protein 5.8 Albumin 3.4 Urine Opiates Screen Urine Methadone Screen Urine Fentanyl Screen Ur Barbiturates Screen Ur Tricyclics Screen Ur Amphetamines Screen U Benzodiazepines Scrn Urine Cocaine Screen U Cannabinoids Screen Chlamydia DNA Probe Chlamydia/GC DNA Source N.gonorrhoeae DNA Probe ABO/Rh Antibody Screen
[2025-08-13 13:38] LABS: Chlamydia Result Negative (Negative); GC Result Negative (Negative)
[2025-08-13 14:30] VITALS: BP 127/82; PULSE 98; TEMP 36.9
== END 2025-08-13 15:00 | disposition home or self-care (01) | DRG 787 ==
PROVIDERS: Admitting Provider Obstetrics & Gynecology; PCP Nurse Practitioner Family; Visit Provider Obstetrics & Gynecology
PROC: 10D00Z1 Extraction of Products of Conception, Low, Open Approach (ICD-10-PCS; CPT 59514; principal; 2025-08-11 14:30)
DX: O30.043 Twin pregnancy, dichorionic/diamniotic, third trimester (principal); O99.324 Drug use complicating childbirth; O36.5931 Maternal care for other known or suspected poor fetal growth, third trimester, fetus 1; Z3A.37 37 weeks gestation of pregnancy; Z37.2 Twins, both liveborn; O34.211 Maternal care for low transverse scar from previous cesarean delivery; N85.8 Other specified noninflammatory disorders of uterus; O12.14 Gestational proteinuria, complicating childbirth; O99.334 Smoking (tobacco) complicating childbirth; O99.344 Other mental disorders complicating childbirth; F41.8 Other specified anxiety disorders; O99.62 Diseases of the digestive system complicating childbirth; K21.9 Gastro-esophageal reflux disease without esophagitis; F17.290 Nicotine dependence, other tobacco product, uncomplicated; F12.10 Cannabis abuse, uncomplicated; F90.9 Attention-deficit hyperactivity disorder, unspecified type; K59.00 Constipation, unspecified
CPT/HCPCS: 59514; 80053; 80307; 86850; 86900; 86901; 87491; 87591; 83615; 85025; 88307; J0456; J0665; J0690; J1885; J2274; J2371; J2405; J3010